=== PATIENT | male | born 1945 | race African-American/Black ===

== ENCOUNTER 2024-09-18 13:30 | Outpatient (CLI) | payer OTHER, SELFPAY ==
--- OUTSIDE RECORDS SUMMARY | 2024-09-14 15:51 | XMS_ITS | Encounter Summary ---
Author Name [facility] Organization [facility] Address [address] [place] [address] Care Team Providers Care Cellular Phone Repairer Name Role Phone JANISMARIOGANESH Dudley Primary Care Provider Unavailabl e Insurance Providers: All historical and current Section Date Range: From patient's date of to the date document was created. This section includes the names of all active insurance providers for the patient. Insurance Provider Type of Coverage Plan Name Start of Policy Coverage End of Policy Coverage Group Number Member ID Insurance Provider's Telephone Number Policy Morrison's Name Patient's Relationship to Policy Morrison MEDICARE (WNR) MEDICARE (M) PART A Jun 20, 2010 PART A [phone] Adriana OSBORN PATIENT MEDICARE (WNR) MEDICARE (M) PART B Jun 20, 2010 PART B [id number] Adriana OSBORN PATIENT Selected Encounter This section includes the information on record at [place] for the Encounter. Date/Time Encounter Type Encounter Description Reason Pro vider Source Aug 14, 2024 11:18 AM Outpatient Encounter PRIMARY CARE/MEDICINE E Encounter Template Text not used by [place] Plan of Treatment: Future Appointments (+ 6 months) and Future Tests (+/- 45 days) The Plan of Treatment section includes future care activities for the patient from all [facility]. This section includes future appointments and future orders which are active, pending or scheduled. Future Appointments This section includes appointments that were scheduled to occur 6 months from the date of the Encounter, up to a maximum of 20 appointments. The data comes from all [place] treatment facilities. Appointment Date/Time Appointment Type Appointme nt Facility Name Sep 01, 2024 05:32 PM AMB[facility] - NONE [facility] Sep 08, 2024 10:00 AM [facility]ICINE [facility] Sep 08, 2024 10:15 AM [facility]ONE [facility] Jan 05, 2025 10:45 AM [facility]ORY [facility] NONE [facility] January 30, 2025 01:00 PM [facility]ATORY - [facility] Lab Results: +/- 30 days of the encounter This section includes the Chemistry and Hematology Lab Results on record with [place] for the patient. Radiology Reports and Pathology Reports are provided separately, in subsequent sections. Lab Results This section contains the Chemistry/Hematology Results that were resulted 30 days before or 30 daysafter the date of the Encounter. Date/Time Source Result Type Result - Unit Interpretation Reference Range Comment Aug 08, 2024 02:18 PM [facility] B 12 Specimen Type: SERUM No comment entered. Ordering Provider: GANESH RICARDO Report Released Date/Time: Aug 01, 2024 09:28 AM Reporting Lab: [facility] [phone] Performing Lab: [facility] [id number] B 12 318 pg/mL [phone] Aug 08, 2024 02:18 PM [facility] FOLATE Specimen Type: SERUM No comment entered. Ordering Provider: GANESH RICARDO Report Released Date/Time: Aug 01, 2024 09:28 AM Reporting Lab: [facility] [phone] Performing Lab: [facility] [phone] FOLATE 9.7 ng/mL >7.0 Aug 08, 2024 02:18 PM [facility] IRON GROUP Specimen Type: PLASMA No comment entered. Ordering Provider: GANESH RICARDO Report Released Date/Time: Aug 01, 2024 09:28 AM Reporting Lab: [facility] [phone] Performing Lab: [facility] [phone] IRON 47 ug/dL L 65-175 TIBC,CALCULATED 250 ug/dL 250-425 FERRITIN 98.5 ng/mL 21.8-274.7 IRON SATURATION 19 L 20-50 TRANSFERRIN 200 mg/dL [phone] Jul 26, 2024 03:26 PM [facility] CBC & DIFF Specimen Type: BLOOD Comment: Automated Differential Performed Ordering Provider: GANESH RICARDO Report Released Date/Time: Jul 26, 2024 02:56 PM Reporting Lab: [facility] [phone] Performing Lab: [facility] [phone] WBC 6.9 4.0-11.0 RBC 4.44 L 4.60-6.20 HGB 11.7 g/dL L 13.5-17.9 HCT 38.7 L 41.0-54.0 MCV 87.2 fL 80.0-100.0 MCH 26.4 pg L 27.0-33.0 MCHC 30.2 g/dL L 32.0-37.5 PLT 126 L 150-400 MPV 12.0 fL 9.1-13.0 NEUT 85.0 H 40.0-80.0 LYMPHS 7.2 L 15.0-45.0 MONO 7.1 2.0-12.0 EOSINO 0.0 0.0-6.0 BASO 0.1 0.0-2.0 RDW 13.7 11.5-14.5 ABS LYMPH 0.5 L 1.0-4.0 ABS MONO 0.5 0.1-1.0 ABS NEUT 5.9 2.0-7.7 ABS EOS 0.0 0.0-0.5 ABS BASO 0.0 0.0-0.2 IG(META,MYELO,P RO) 0.6 ABS IMMATURE GRAN 0.0 0.0-0.1 Jul 26, 2024 03:26 PM [facility] COMPREHENSIVE METABOLIC PANEL+MG Specimen Type: PLASMA No comment entered. Ordering Provider: GANESH RICARDO Report Released Date/Time: Jul 26, 2024 02:56 PM Reporting Lab: [facility] [phone] Performing Lab: [facility] [phone] CREATININE 1.0 mg/dL 0.7-1.2 UREA NITROGEN 23 mg/dL 8-26 GLUCOSE 101 mg/dL H 70-100 SODIUM 140 mmol/L 136-145 POTASSIUM 4.0 mmol/L 3.5-5.1 CHLORIDE 104 mmol/L 98-107 CO2 26 mmol/L 22-29 CALCIUM 10.2 mg/dL 8.4-10.2 PROTEIN,TOTAL 7.1 g/dL 6.4-8.3 ALBUMIN 4.0 g/dL 3.5-5.0 BILIRUBIN, TOTAL 0.2 mg/dL 0.2-1.2 MAGNESIUM 2.1 mg/dL 1.6-2.6 ANION GAP 10 mmol/L 5-15 ALKALINE PHOSPHATASE 119 U/L 40-150 ALT/SGPT 10 U/L <44 AST/SGOT 24 U/L 11-34 .CREAT EGFR(CKD-EPI) 77 >60 Jul 26, 2024 03:26 PM [facility] HEMOGLOBIN A1C Specimen Type: BLOOD Comment: Values obtained from A1C measurements can vary. For typical A1C assays, a reported value of 7.0 could actually be between 6.7 and 7.3 if measured by a reference method. A reported value of 9.0 could actually be between 8.7 and 9.3. Ref: http://www.ngs p.org/CAPdata. asp Ordering Provider: GANESH RICARDO Report Released Date/Time: Jul 26, 2024 02:56 PM Reporting Lab: [facility] [phone] Performing Lab: [facility] [phone] HEMOGLOBIN A1C 6.4 H 4.0-6.0 Jul 26, 2024 03:26 PM [facility] LIPID PANEL,NON-FASTING Specimen Type: PLASMA No comment entered. Ordering Provider: GANESH RICARDO Report Released Date/Time: Jul 26, 2024 02:56 PM Reporting Lab: [facility] [phone] Performing Lab: [facility] [phone] CHOLESTEROL 215 mg/dL H <199 .HDL 83 mg/dL >40 LDL CALCULATION 117 mg/dL H <99 VLDL CALCULATION 15 mg/dL <29 NON HDL CHOLESTEROL 132 mg/dL H <129 TRIG(NON FASTING) 76 mg/dL <149 Jul 26, 2024 03:26 PM [facility] ANTI-HEP C(EIA) Specimen Type: SERUM No comment entered. Ordering Provider: GANESH RICARDO Report Released Date/Time: Jul 26, 2024 02:56 PM Reporting Lab: [facility] [phone] Performing Lab: [facility] [phone] ANTI-HEP C(EIA) NEGATIVE NEGATIVE Encounter Notes: All associated encounter notes This section contains the clinical notes associated to the Encounter. Date/Time Encounter Note(s) Provider Source Aug 14, 2024 11:18 AM REPORT OF CONTACT: LOCAL TITLE: PATIENT CONTACT NOTE STANDARD TITLE: REPORT OF CONTACT DATE OF NOTE: AUG 14, 2024@11:18 ENTRY DATE: AUG 14, 2024@11:19:03 AUTHOR: TONYA HESS EXP COSIGNER: URGENCY: STATUS: COMPLETED PATIENT CONTACT NOTE Has ADDENDA Patient contact Name of : TROY OSBORN Date & Time of Contact: Jul@11:19 Type of Contact: Reason for Contact: [place] was informed by [facility] Urgent/emergent hotline to notify provider of his urgent care visit at [facility] this past Wednesday08-11-2024 for a bladder infection. placed on 14 day antibiotic. /naun/ [facility] Signed: 08/14/2024 11:23 Receipt Acknowledged By: 08/14/2024 11:43 /brian LARRY RN RN, [facility] 08/14/2024 ADDENDUM STATUS: COMPLETED RTC order placed for RN evaluation of sx after abx course /naun/ CASTILLO LARRY RN RN, [facility] Signed: 08/14/2024 11:45 TONYA HESS [facility]
--- OUTSIDE RECORDS SUMMARY | 2024-09-14 15:51 | XMS_ITS | Continuity of Care Document ---
Author Name [facility] Organization [facility] Care Team Providers Care Wood Type Cutter Name Role Phone [facility] Unavailable Unavailable Problems Combined list of problems from Department of Defense and Veterans Affairs facilities. It does not include entries that were removed or entered in error. Problem Status Onset Date Problem Type Date of Resolution Comments Source Acute renal failure Active Condition Jul 26, 2024 Entered By: GANESH RICARDO Comment: [facility] Anaemia Active Condition [facility] Chronic kidney disease Active Condition [facility] Diabetes mellitus type 2 Active Condition [facility] Essential hypertension Active Condition [facility] History of malignant neoplasm of prostate Active Condition [facility] History of myocardial infarction Active Condition Jul 26, 2024 Entered By: GANESH RICARDO Comment: 2000 [facility] History of peripheral arterial occlusive disease Active Condition [facility] Hydronephrosis Active Condition [facility] Leucocytosis Active Condition [facility] Male urinary stress incontinence Active Condition [facility] Mixed hyperlipidaemia Active Condition [facility] Peripheral vascular disease Active Condition [facility] visit for: administrative purpose Active Condition [facility] Laboratory Studies Active Condition 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 Inactive Condition [facility] visit for: issue repeat prescription Active Condition DoD visit for: issue repeat prescription for medication Active Condition DoD hypertension systemic Active Condition DoD Serum Enzyme Levels - AST (SGOT) Elevated Active Condition DoD cataract senile cortical posterior Active Condition DoD cataract senile cortical anterior Active Condition 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 nml TI nml colon. grade I internal hemorroids. recs; repeat csp in 5 yrs due to hx of polyps in past and prep quality DoD Administrative Evaluation Services Active Condition called p t and let him know labs in. asked him to come fasting. thanks DoD diabetes mellitus type 2 - uncomplicated, controlled Active Condition DoD cataract both eyes Active Condition M ild NS and cortical OU DoD astigmatism regular Active Condition Do D presbyopia Active Condition DoD refractive error - hypermetropia Active Condition DoD Preventive Medicine Established Patient Checkup Adult 40-64 Years Active Condition Fasting Blood Sugar -- DM, A1c 7.0 07/27, Lipid Panel -- UTD 11/25Electrocar diogram -- UTD Colonoscopy -- Scheduled for 12/30/07Influen za Vaccine --UTD 07/27Pneuomova x -- 2002Tetanus Vaccine -- UTD 07/27Aspirin Prophylaxis -- currently on 325 dailyPSA/Prost ate Exam -- UTD 07/27 (2.65)AAA Screen --Due at age 65Advanced Directives: pt educated to go to [facility] office and fill out paperwork DoD hyperlipidemia Active Condition DoD large intestine neoplasm, 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 Will re-consult at this time. DoD diabetes mellitus under control Active Condition At goal A1c 7.0 in 07/27, will order repeat A1c for todayLipids LDL 50, goal <70BPs well controlledOpth o: UTD 08/26, Due 08/27Podiatry: UTD 07/27, Due 07/28Continue current regimenF/U A1c in 3-6 months DoD Diagnosis: ICD-10-CM I10 Essential (primary) hypertension Active Diagnosis [facility] Diagnosis: ICD-10-CM Z00.00 Encntr for general adult medical exam w/o abnormal findings Active Diagnosis [facility] Medications Combined list of outpatient medications from Department of Defense and Veterans Affairs facilities.Medications provided include 1) outpatient medications from the last 15 months, and 2) patient-reported medications. Medication Details Route Status Patient Instructions Prescription Expires Prescription Number Last Dispense Date Ordering Provider Order Date Order Qty Source ASPIRIN 81MG TAB,EC TAKE ONE TABLET BY MOUTH EVERY DAY ORAL ACTIVE Franklin RICARDO SAMY Womack 2023 [facility] BUPRENORPHI NE (buprenorph ine), 5 MCG/HR, PATCH TDWK, TRANSDERM, AMNEAL PHARMACE, 4 ea. BOX Cancele d [id number] : 2023 0 Pharmac y Data Transac tion Service Facilit y BUPRENORPHI NE (buprenorph ine), 5 MCG/HR, PATCH TDWK, TRANSDERM, AMNEAL PHARMACE, 4 ea. BOX Active [id number] 2023 4 Pharmac y Data Transac tion Service Facilit y BUPRENORPHI NE 10MCG/HR PATCH APPLY 1 PATCH TOPICALL Y ONCE WEEKLY TOPICA L ACTIVE HALEIGHFranklin SAMY Womack 2023 [facility] CARVEDILOL ER (carvedilol phosphate), 20 MG, CPMP 24HR, ORAL, SUN PHARMACEUTI , 30 ea. BOTTLE Active [id number] 2023 30 Pharmac y Data Transac tion Service Facilit y CARVEDILOL ER (carvedilol phosphate), 20 MG, CPMP 24HR, ORAL, SUN PHARMACEUTI , 30 ea. BOTTLE Active [id number] 4 2023 30 Pharmac y Data Transac tion Service Facilit y CARVEDILOL ER (carvedilol phosphate), 20 MG, CPMP 24HR, ORAL, SUN PHARMACEUTI , 30 ea. BOTTLE Active [id number] 2023 30 Pharmac y Data Transac tion Service Facilit y CARVEDILOL ER (carvedilol phosphate), 40 MG, CPMP 24HR, ORAL, SUN PHARMACEUTI , 30 ea. BOTTLE Active [id number] 4 2023 90 Pharmac y Data Transac tion Service Facilit y CARVEDILOL PO4 20MG CAP,SA TAKE 1 CAPSULE BY MOUTH EVERY MORNING ORAL ACTIVE JANISFranklin LARA 2023 [facility] CILOSTAZOL (cilostazol ), 50 MG, TABLET, ORAL, NUHA MONTESINOS HI, 60 ea. BOTTLE Cancele d [id number] : 2023 0 Pharmac y Data Transac tion Service Facilit y CILOSTAZOL (cilostazol ), 50 MG, TABLET, ORAL, NUHA MONTESINOS HI, 60 ea. BOTTLE Active [id number] 2023 180 Pharmac y Data Transac tion Service Facilit y CORTEF (HYDROCORTI SONE), 5MG, TABLET, ORAL, PHARMACIA/U PJHN, 50 ea. BOTTLE Active [id number] 2023 270 Pharmac y Data Transac tion Service Facilit y CYCLOBENZAP RINE TAB TAKE 5 MG 1-2 TABLETS BY MOUTH AT BEDTIME NEEDED ORAL ACTIVE Franklin RICARDO 2023 [facility] ERGOCALCIFE ROL CAP,ORAL TAKE 01395 UT BY MOUTH ONCE WEEKLY ORAL ACTIVE Franklin RICARDO 2023 [facility] FREESTYLE LITE TEST STRIP (blood sugar diagnostic) , STRIP, MISCELL, DUNCAN DIABETES, 50 ea. BOX Active [id number] 2023 400 Pharmac y Data Transac tion Service Facilit y GAVILYTE-G (PEG 3350/NA SULF,BICARB ,CL/KCL), 236-22.74G, SOLN RECON, ORAL, GAVIS PHARMACEU, 4000 ml BOTTLE Active [id number] 2023 4000 Pharmac y Data Transac tion Service Facilit y GLUCOSE TEST TEST STRIP USE NOT APPLIC ABLE ACTIVE Franklin RICARDO 2023 [facility] HYDROCODONE -ACETAMINOP HEN (HYDROCODON E/ACETAMINO PHEN), 5MG-325MG, TABLET, ORAL, AMNEAL PHARMACE, 100 ea. BOTTLE Active [id number] 2023 42 Pharmac y Data Transac tion Service Facilit y HYDROCODONE -ACETAMINOP HEN (HYDROCODON E/ACETAMINO PHEN), 5MG-325MG, TABLET, ORAL, AMNEAL PHARMACE, 100 ea. BOTTLE Active [id number] 2023 42 Pharmac y Data Transac tion Service Facilit y INSULIN ASPART (HUMAN) INJ INJECT FLEX PEN 14 UNITS 3 X DAY UNDER THE SKIN BEFORE MEALS SUBCUT ANEOUS ACTIVE Franklin RICARDO 2023 [facility] INSULIN GLARGINE 100UNIT/ML INJ INJECT SOLOSTAR PEN 20 UNITS UNDER THE SKIN EVERY MORNING SUBCUT ANEOUS ACTIVE Franklin RICARDO 2023 [facility] LIDOCAINE 5% PATCH APPLY 1 PATCH TOPICALL Y EVERY 12 HOURS TOPICA L ACTIVE Franklin RICARDO 2023 [facility] LISINOPRIL (LISINOPRIL ), 2.5MG, TABLET, ORAL, LUPIN PHARMACEU, 500 ea. BOTTLE Active [id number] 4 2023 90 Pharmac y Data Transac tion Service Facilit y LISINOPRIL 2.5MG TAB TAKE ONE TABLET BY MOUTH EVERY DAY ORAL ACTIVE Franklin RICARDO 2023 [facility] MORPHINE SOLN,ORAL TAKE 2.5-5 MG BY MOUTH EVERY 4 HOURS NEEDED ORAL ACTIVE Franklin RICARDO 2023 [facility] NON VA MED NOT LISTED MISCELLANEO US USE RELI PEN NEEDLES3 1 G X 8 MM ACTIVE Franklin RICARDO 2023 [facility] OXYCODONE HCL (oxycodone HCl), 5 MG, CAPSULE, ORAL, [employer] 100 ea. BOTTLE Active [id number] 4 2023 12 Pharmac y Data Transac tion Service Facilit y PREDNISONE (PREDNISONE ), 1MG, TABLET, ORAL, CADISTA PHARMAC, 100 ea. BOTTLE Active [id number] 3 2022 90 Pharmac y Data Transac tion Service Facilit y PROCHLORPER AZINE MALEATE (prochlorpe razine maleate), 10 MG, TABLET, ORAL, ZYDUS PHARMACEU, 100 ea. BOTTLE Active [id number] 2023 30 Pharmac y Data Transac tion Service Facilit y PROCHLORPER AZINE MALEATE 10MG TAB TAKE ONE TABLET BY MOUTH EVERY 4 HOURS NEEDED ORAL ACTIVE Franklin RICARDO 2023 [facility] SITAGLIPTIN (EQV-ZITUVI O) 100MG TAB TAKE ONE TABLET BY MOUTH EVERY MORNING ORAL ACTIVE Franklin RICARDO 2023 [facility] TALZENNA (talazopari b tosylate), 0.25 MG, CAPSULE, ORAL, PFIZER US PHARM, 30 ea. BOTTLE Cancele d [id number] : 2023 0 Pharmac y Data Transac tion Service Facilit y TALZENNA (talazopari b tosylate), 0.25 MG, CAPSULE, ORAL, PFIZER US PHARM, 30 ea. BOTTLE Active [id number] 2023 30 Pharmac y Data Transac tion Service Facilit y XTANDI (ENZALUTAMI DE), 40 MG, CAPSULE, ORAL, Neteven PHARMA, 120 ea. BOTTLE Active [id number] 4 2023 90 Pharmac y Data Transac tion Service Facilit y Allergies, Adverse Reactions, Alerts Combined list of allergies from Department of Defense and Veterans Affairs facilities. It does not include entries that were removed or entered in error. Substance Category Reaction Severity Reaction type Status Date Reported Comments Source No Known Allergies Drug allergy (disorder) active 03/28/2008 [employer] Immunizations Combined list of available immunizations from the Department of Defense and Veterans Affairs facilities. Immunization Series Date Given Administered By Site Reaction Lot Number CVX Code Drug Concrete Hopper Operator Status Comments Source INFLUENZA, HIGH-DOSE, QUADRIVALENT, PF 2022 197 complet ed [facility] COVID-19 (MODERNA), MRNA, LNP-S, BIVALENT, PF, 50 MCG/0.5 ML OR 25MCG/0.25 ML DOSE 2021 229 complet ed [facility] COVID-19 (MODERNA), MRNA, LNP-S, PF, 100 MCG/0.5ML DOSE OR 50 MCG/0.25ML DOSE 2020 207 complet ed [facility] INFLUENZA, HIGH-DOSE, QUADRIVALENT, PF [address] [facility] COVID-19 (PRINCESS), VECTOR-NR, RS-AD26, PF, 0.5 ML [address] [facility] INFLUENZA, HIGH-DOSE, QUADRIVALENT, PF [address] [facility] INFLUENZA, HIGH-DOSE, TRIVALENT, PF [address] [facility] INFLUENZA, HIGH-DOSE, TRIVALENT, PF [address] [facility] INFLUENZA, HIGH-DOSE, TRIVALENT, PF [address] [facility] pneumococcal polysaccharid e PPV23 2015 [facility], () Not Given pneumococ enoc polysacch aride PPV23 DoD Pneumococcal conjugate PCV 13 2015 [facility], () Not Given Pneumococ enoc conjugate PCV 13 DoD zoster live 2015 [facility], () Not Given zoster live DoD PNEUMOCOCCAL CONJUGATE PCV [address] [facility] INFLUENZA, HIGH-DOSE, TRIVALENT, PF [address] [facility] INFLUENZA, HIGH-DOSE, TRIVALENT, PF [address] [facility] INFLUENZA, HIGH-DOSE, TRIVALENT, PF [address] [facility] TDAP [address] [facility] PNEUMOCOCCAL POLYSACCHARID E PPV23 [address] [facility] INFLUENZA, HIGH-DOSE, TRIVALENT, PF [address] [facility] influenza virus vaccine, whole virus 1 2008 Unknown, Provider 16 () complet ed influenza virus vaccine, whole virus DoD influenza virus vaccine, split virus (incl. purified surface antigen)-reti red CODE 1 2006 Unknown, Provider [id number] [facility] influenza virus vaccine, split virus (incl. purified surface antigen)- retired CODE DoD tetanus toxoid, reduced diphtheria toxoid, and acellular pertu is vaccine, adsorbed 2006 Unknown, Provider [id number] Sanofi Pasteur (PMC) complet ed tetanus toxoid, reduced diphtheri a toxoid, and acellular pertussis vaccine, adsorbed DoD zoster vaccine, live 1 2006 Unknown, Provider [id number] Merck (MSD) complet ed zoster vaccine, live DoD influenza virus vaccine, split virus (incl. purified surface antigen)-reti red CODE 1 2003 Unknown, Provider [id number] 15 Sanofi Pasteur (PMC) complet ed influenza virus vaccine, split virus (incl. purified surface antigen)- retired CODE DoD influenza virus vaccine, whole virus 1 2002 Unknown, Provider [id number] 16 [employer] (PWJ) complet ed influenza virus vaccine, whole virus DoD pneumococcal polysaccharid e vaccine, 23 valent 1 2002 Unknown, Provider [id number] 33 Merck (MSD) complet ed pneumococ enoc polysacch aride vaccine, 23 valent DoD pneumococcal polysaccharid e vaccine, 23 valent 1 2001 Unknown, Provider [id number] Merck (MSD) complet ed pneumococ enoc polysacch aride vaccine, 23 valent DoD Results Combined list of recent chemistry, hematology and other laboratory results from Department of Defense and Veterans Affairs, ranging from 15 months to all on record, depending upon the facility. Order Name Results Value Reference Range Date Interpretation Specimen Comments Source B 12 COBALAMIN (VITAMIN B12) [MASS/VOLU ME] IN SERUM OR PLASMA 318 pg/mL 213 - 816 08/08 Specimen Type: SERUM No comment entered. Ordering Provider: MERY RICARDO Report Released Date/Time: Aug 01, 2024 09:28 AM Reporting Lab: [facility] [phone] Performing Lab: [facility] [address] [facility] FOLATE FOLATE [MASS/VOLU ME] IN SERUM OR PLASMA 9.7 ng/mL 7.0 08/08 Specimen Type: SERUM No comment entered. Ordering Provider: MERY RICARDO Report Released Date/Time: Aug 01, 2024 09:28 AM Reporting Lab: [facility] [phone] Performing Lab: [facility] [address] [facility] IRON GROUP IRON [MASS/VOLU ME] IN SERUM OR PLASMA 47 ug/dL 65 - 175 08/08 L Specimen Type: PLASMA No comment entered. Ordering Provider: MEYR RICARDO Report Released Date/Time: Aug 01, 2024 09:28 AM Reporting Lab: [facility] [address] Performing Lab: [facility] [address] [facility] IRON GROUP IRON BINDING CAPACITY [MASS/VOLU ME] IN SERUM OR PLASMA 250 ug/dL 250 - 425 08/08 Specimen Type: PLASMA No comment entered. Ordering Provider: MERY RICARDO Report Released Date/Time: Aug 01, 2024 09:28 AM Reporting Lab: [facility] [address] Performing Lab: [facility] [address] [facility] IRON GROUP FERRITIN [MASS/VOLU ME] IN SERUM OR PLASMA 98.5 ng/mL 21.8 - 274.7 08/08 Specimen Type: PLASMA No comment entered. Ordering Provider: MERY RICARDO Report Released Date/Time: Aug 01, 2024 09:28 AM Reporting Lab: [facility] [address] Performing Lab: [facility] [address] [facility] IRON GROUP IRON SATURATION 19 20 - 50 08/08 L Specimen Type: PLASMA No comment entered. Ordering Provider: MERY RICARDO Report Released Date/Time: Aug 01, 2024 09:28 AM Reporting Lab: [facility] [address] Performing Lab: [facility] [address] [facility] IRON GROUP TRANSFERRI N [MASS/VOLU ME] IN SERUM OR PLASMA 200 mg/dL 163 - 382 08/08 Specimen Type: PLASMA No comment entered. Ordering Provider: MERY RICARDO Report Released Date/Time: Aug 01, 2024 09:28 AM Reporting Lab: [facility] [phone] Performing Lab: [facility] [address] [facility] CBC & DIFF LEUKOCYTES [#/VOLUME] IN BLOOD BY AUTOMATED COUNT 6.9 4.0 - 11.0 07/26 Specimen Type: BLOOD Comment: Automated Differentia l Performed Ordering Provider: MERY RICARDO Report Released Date/Time: Jul 26, 2024 02:56 PM Reporting Lab: [facility] [address] Performing Lab: [facility] [address] [facility] CBC & DIFF ERYTHROCYT ES [#/VOLUME] IN BLOOD BY AUTOMATED COUNT 4.44 4.60 - 6.20 07/26 L Specimen Type: BLOOD Comment: Automated Differentia l Performed Ordering Provider: MERY RICARDO Report Released Date/Time: Jul 26, 2024 02:56 PM Reporting Lab: [facility] [address] Performing Lab: [facility] [address] [facility] CBC & DIFF HEMOGLOBIN [MASS/VOLU ME] IN BLOOD 11.7 g/dL 13.5 - 17.9 07/26 L Specimen Type: BLOOD Comment: Automated Differentia l Performed Ordering Provider: MERY RICARDO Report Released Date/Time: Jul 26, 2024 02:56 PM Reporting Lab: [facility] [phone] Performing Lab: [facility] [phone] [facility] CBC & DIFF HEMATOCRIT [VOLUME FRACTION] OF BLOOD BY AUTOMATED COUNT 38.7 41.0 - 54.0 07/26 L Specimen Type: BLOOD Comment: Automated Differentia l Performed Ordering Provider: MERY RICARDO Report Released Date/Time: Jul 26, 2024 02:56 PM Reporting Lab: [facility] [phone] Performing Lab: [facility] [address] [facility] CBC & DIFF MCV [ENTITIC VOLUME] BY AUTOMATED COUNT 87.2 fL 80.0 - 100.0 07/26 Specimen Type: BLOOD Comment: Automated Differentia l Performed Ordering Provider: MERY RICARDO Report Released Date/Time: Jul 26, 2024 02:56 PM Reporting Lab: [facility] [phone] Performing Lab: [facility] [address] [facility] CBC & DIFF MCH [ENTITIC MASS] BY AUTOMATED COUNT 26.4 pg 27.0 - 33.0 07/26 L Specimen Type: BLOOD Comment: Automated Differentia l Performed Ordering Provider: MERY RICARDO Report Released Date/Time: Jul 26, 2024 02:56 PM Reporting Lab: [facility] [address] Performing Lab: [facility] [phone] [facility] CBC & DIFF MCHC [MASS/VOLU ME] BY AUTOMATED COUNT 30.2 g/dL 32.0 - 37.5 07/26 L Specimen Type: BLOOD Comment: Automated Differentia l Performed Ordering Provider: MERY RICARDO Report Released Date/Time: Jul 26, 2024 02:56 PM Reporting Lab: [facility] [phone] Performing Lab: [facility] [phone] [facility] CBC & DIFF PLATELETS [#/VOLUME] IN BLOOD BY AUTOMATED COUNT 126 150 - 400 07/26 L Specimen Type: BLOOD Comment: Automated Differentia l Performed Ordering Provider: MERY RICARDO Report Released Date/Time: Jul 26, 2024 02:56 PM Reporting Lab: [facility] [phone] Performing Lab: [facility] [phone] [facility] CBC & DIFF PLATELET MEAN VOLUME [ENTITIC VOLUME] IN BLOOD BY AUTOMATED COUNT 12.0 fL 9.1 - 13.0 07/26 Specimen Type: BLOOD Comment: Automated Differentia l Performed Ordering Provider: MERY RICARDO Report Released Date/Time: Jul 26, 2024 02:56 PM Reporting Lab: [facility] [phone] Performing Lab: [facility] [phone] [facility] CBC & DIFF NEUTROPHIL S/100 LEUKOCYTES IN BLOOD BY MANUAL COUNT 85.0 40.0 - 80.0 07/26 H Specimen Type: BLOOD Comment: Automated Differentia l Performed Ordering Provider: MEYR RICARDO Report Released Date/Time: Jul 26, 2024 02:56 PM Reporting Lab: [facility] [phone] Performing Lab: [facility] [address] [facility] CBC & DIFF LYMPHOCYTE S/100 LEUKOCYTES IN BLOOD BY MANUAL COUNT 7.2 15.0 - 45.0 07/26 L Specimen Type: BLOOD Comment: Automated Differentia l Performed Ordering Provider: MERY RICARDO Report Released Date/Time: Jul 26, 2024 02:56 PM Reporting Lab: [facility] [phone] Performing Lab: [facility] [address] [facility] CBC & DIFF MONOCYTES/ 100 LEUKOCYTES IN BLOOD BY AUTOMATED COUNT 7.1 2.0 - 12.0 07/26 Specimen Type: BLOOD Comment: Automated Differentia l Performed Ordering Provider: MERY RICARDO Report Released Date/Time: Jul 26, 2024 02:56 PM Reporting Lab: [facility] [phone] Performing Lab: [facility] [address] [facility] CBC & DIFF EOSINOPHIL S/100 LEUKOCYTES IN BLOOD BY AUTOMATED COUNT 0.0 0.0 - 6.0 07/26 Specimen Type: BLOOD Comment: Automated Differentia l Performed Ordering Provider: MERY RICARDO Report Released Date/Time: Jul 26, 2024 02:56 PM Reporting Lab: [facility] [phone] Performing Lab: [facility] [address] [facility] CBC & DIFF BASOPHILS/ 100 LEUKOCYTES IN BLOOD BY MANUAL COUNT 0.1 0.0 - 2.0 07/26 Specimen Type: BLOOD Comment: Automated Differentia l Performed Ordering Provider: MERY RICARDO Report Released Date/Time: Jul 26, 2024 02:56 PM Reporting Lab: [facility] [phone] Performing Lab: [facility] [address] [facility] CBC & DIFF ERYTHROCYT E DISTRIBUTI ON WIDTH [RATIO] BY AUTOMATED COUNT 13.7 11.5 - 14.5 07/26 Specimen Type: BLOOD Comment: Automated Differentia l Performed Ordering Provider: MERY RICARDO Report Released Date/Time: Jul 26, 2024 02:56 PM Reporting Lab: [facility] [phone] Performing Lab: [facility] [address] [facility] CBC & DIFF LYMPHOCYTE S [#/VOLUME] IN BLOOD BY AUTOMATED COUNT 0.5 1.0 - 4.0 07/26 L Specimen Type: BLOOD Comment: Automated Differentia l Performed Ordering Provider: MERY RICARDO Report Released Date/Time: Jul 26, 2024 02:56 PM Reporting Lab: [facility] [address] Performing Lab: [facility] [phone] [facility] CBC & DIFF MONOCYTES [#/VOLUME] IN BLOOD BY AUTOMATED COUNT 0.5 0.1 - 1.0 07/26 Specimen Type: BLOOD Comment: Automated Differentia l Performed Ordering Provider: MERY RICARDO Report Released Date/Time: Jul 26, 2024 02:56 PM Reporting Lab: [facility] [address] Performing Lab: [facility] [address] [facility] CBC & DIFF NEUTROPHIL S [#/VOLUME] IN BLOOD BY AUTOMATED COUNT 5.9 2.0 - 7.7 07/26 Specimen Type: BLOOD Comment: Automated Differentia l Performed Ordering Provider: MERY RICARDO Report Released Date/Time: Jul 26, 2024 02:56 PM Reporting Lab: [facility] [phone] Performing Lab: [facility] [address] [facility] CBC & DIFF EOSINOPHIL S [#/VOLUME] IN BLOOD BY AUTOMATED COUNT 0.0 0.0 - 0.5 07/26 Specimen Type: BLOOD Comment: Automated Differentia l Performed Ordering Provider: MERY RICARDO Report Released Date/Time: Jul 26, 2024 02:56 PM Reporting Lab: [facility] [phone] Performing Lab: [facility] [phone] [facility] CBC & DIFF BASOPHILS [#/VOLUME] IN BLOOD BY AUTOMATED COUNT 0.0 0.0 - 0.2 07/26 Specimen Type: BLOOD Comment: Automated Differentia l Performed Ordering Provider: MERY RICARDO Report Released Date/Time: Jul 26, 2024 02:56 PM Reporting Lab: [facility] [phone] Performing Lab: [facility] [phone] [facility] CBC & DIFF IG(META,MY GEETA,PRO) 0.6 07/26 Specimen Type: BLOOD Comment: Automated Differentia l Performed Ordering Provider: MERY RICARDO Report Released Date/Time: Jul 26, 2024 02:56 PM Reporting Lab: [facility] [address] Performing Lab: [facility] [address] [facility] CBC & DIFF IMMATURE GRANULOCYT ES [PRESENCE] IN BLOOD BY AUTOMATED COUNT 0.0 0.0 - 0.1 07/26 Specimen Type: BLOOD Comment: Automated Differentia l Performed Ordering Provider: MERY RICARDO Report Released Date/Time: Jul 26, 2024 02:56 PM Reporting Lab: [facility] [phone] Performing Lab: [facility] [address] [facility] COMPREHEN SIVE METABOLIC PANEL+MG CREATININE [MASS/VOLU ME] IN SERUM OR PLASMA 1.0 mg/dL 0.7 - 1.2 07/26 Specimen Type: PLASMA No comment entered. Ordering Provider: MERY RICARDO Report Released Date/Time: Jul 26, 2024 02:56 PM Reporting Lab: [facility] [phone] Performing Lab: [facility] [address] [facility] COMPREHEN SIVE METABOLIC PANEL+MG UREA NITROGEN [MASS/VOLU ME] IN SERUM OR PLASMA 23 mg/dL 8 - 26 07/26 Specimen Type: PLASMA No comment entered. Ordering Provider: MERY RICARDO Report Released Date/Time: Jul 26, 2024 02:56 PM Reporting Lab: [facility] [phone] Performing Lab: [facility] [address] [facility] COMPREHEN SIVE METABOLIC PANEL+MG GLUCOSE [MASS/VOLU ME] IN SERUM OR PLASMA 101 mg/dL 70 - 100 07/26 H Specimen Type: PLASMA No comment entered. Ordering Provider: MERY RICARDO Report Released Date/Time: Jul 26, 2024 02:56 PM Reporting Lab: [facility] [phone] Performing Lab: [facility] [address] [facility] COMPREHEN SIVE METABOLIC PANEL+MG SODIUM [MOLES/VOL UME] IN SERUM OR PLASMA 140 mmol/L 136 - 145 07/26 Specimen Type: PLASMA No comment entered. Ordering Provider: MERY RICARDO Report Released Date/Time: Jul 26, 2024 02:56 PM Reporting Lab: [facility] [address] Performing Lab: [facility] [address] [facility] COMPREHEN SIVE METABOLIC PANEL+MG POTASSIUM [MOLES/VOL UME] IN SERUM OR PLASMA 4.0 mmol/L 3.5 - 5.1 07/26 Specimen Type: PLASMA No comment entered. Ordering Provider: MERY RICARDO Report Released Date/Time: Jul 26, 2024 02:56 PM Reporting Lab: [facility] [phone] Performing Lab: [facility] [address] [facility] COMPREHEN SIVE METABOLIC PANEL+MG CHLORIDE [MOLES/VOL UME] IN SERUM OR PLASMA 104 mmol/L 98 - 107 07/26 Specimen Type: PLASMA No comment entered. Ordering Provider: MERY RICARDO Report Released Date/Time: Jul 26, 2024 02:56 PM Reporting Lab: [facility] [address] Performing Lab: [facility] [address] [facility] COMPREHEN SIVE METABOLIC PANEL+MG CARBON DIOXIDE, TOTAL [MOLES/VOL UME] IN SERUM OR PLASMA 26 mmol/L 22 - 29 07/26 Specimen Type: PLASMA No comment entered. Ordering Provider: MERY RICARDO Report Released Date/Time: Jul 26, 2024 02:56 PM Reporting Lab: [facility] [address] Performing Lab: [facility] [address] [facility] COMPREHEN SIVE METABOLIC PANEL+MG CALCIUM [MASS/VOLU ME] IN SERUM OR PLASMA 10.2 mg/dL 8.4 - 10.2 07/26 Specimen Type: PLASMA No comment entered. Ordering Provider: MERY RICARDO Report Released Date/Time: Jul 26, 2024 02:56 PM Reporting Lab: [facility] [address] Performing Lab: [facility] [address] [facility] COMPREHEN SIVE METABOLIC PANEL+MG PROTEIN [MASS/VOLU ME] IN SERUM OR PLASMA 7.1 g/dL 6.4 - 8.3 07/26 Specimen Type: PLASMA No comment entered. Ordering Provider: MERY RICARDO Report Released Date/Time: Jul 26, 2024 02:56 PM Reporting Lab: [facility] [address] Performing Lab: [facility] [address] [facility] COMPREHEN SIVE METABOLIC PANEL+MG ALBUMIN [MASS/VOLU ME] IN SERUM OR PLASMA 4.0 g/dL 3.5 - 5.0 07/26 Specimen Type: PLASMA No comment entered. Ordering Provider: MERY RICARDO Report Released Date/Time: Jul 26, 2024 02:56 PM Reporting Lab: [facility] [address] Performing Lab: [facility] [address] [facility] COMPREHEN SIVE METABOLIC PANEL+MG BILIRUBIN. TOTAL [MASS/VOLU ME] IN SERUM OR PLASMA 0.2 mg/dL 0.2 - 1.2 07/26 Specimen Type: PLASMA No comment entered. Ordering Provider: MERY RICARDO Report Released Date/Time: Jul 26, 2024 02:56 PM Reporting Lab: [facility] [address] Performing Lab: [facility] [address] [facility] COMPREHEN SIVE METABOLIC PANEL+MG MAGNESIUM [MASS/VOLU ME] IN SERUM OR PLASMA 2.1 mg/dL 1.6 - 2.6 07/26 Specimen Type: PLASMA No comment entered. Ordering Provider: MERY RICARDO Report Released Date/Time: Jul 26, 2024 02:56 PM Reporting Lab: [facility] [address] Performing Lab: [facility] [address] [facility] COMPREHEN SIVE METABOLIC PANEL+MG ANION GAP IN SERUM OR PLASMA 10 mmol/L 5 - 15 07/26 Specimen Type: PLASMA No comment entered. Ordering Provider: MERY RICARDO Report Released Date/Time: Jul 26, 2024 02:56 PM Reporting Lab: [facility] [phone] Performing Lab: [facility] [phone] [facility] COMPREHEN SIVE METABOLIC PANEL+MG ALKALINE PHOSPHATAS E [ENZYMATIC ACTIVITY/V OLUME] IN SERUM OR PLASMA 119 U/L 40 - 150 07/26 Specimen Type: PLASMA No comment entered. Ordering Provider: MERY RICARDO Report Released Date/Time: Jul 26, 2024 02:56 PM Reporting Lab: [facility] [phone] Performing Lab: [facility] [address] [facility] COMPREHEN SIVE METABOLIC PANEL+MG ALANINE AMINOTRANS FERASE [ENZYMATIC ACTIVITY/V OLUME] IN SERUM OR PLASMA 10 U/L <44 - 44 07/26 Specimen Type: PLASMA No comment entered. Ordering Provider: MERY RICARDO Report Released Date/Time: Jul 26, 2024 02:56 PM Reporting Lab: [facility] [address] Performing Lab: [facility] [phone] [facility] COMPREHEN SIVE METABOLIC PANEL+MG ASPARTATE AMINOTRANS FERASE [ENZYMATIC ACTIVITY/V OLUME] IN SERUM OR PLASMA 24 U/L 11 - 34 07/26 Specimen Type: PLASMA No comment entered. Ordering Provider: MERY RICARDO Report Released Date/Time: Jul 26, 2024 02:56 PM Reporting Lab: [facility] [address] Performing Lab: [facility] [address] [facility] COMPREHEN SIVE METABOLIC PANEL+MG GLOMERULAR FILTRATION RATE/1.73 SQ M.PREDICTE D [VOLUME RATE/AREA] IN SERUM, PLASMA OR BLOOD BY CREATININE -BASED FORMULA (CKD-EPI 2020) 77 60 07/26 Specimen Type: PLASMA No comment entered. Ordering Provider: MERY RICARDO Report Released Date/Time: Jul 26, 2024 02:56 PM Reporting Lab: [facility] [address] Performing Lab: [facility] [address] [facility] HEMOGLOBI N A1C HEMOGLOBIN A1C/HEMOGL OBIN.TOTAL IN BLOOD 6.4 4.0 - 6.0 07/26 H Specimen Type: BLOOD Comment: Values obtained from A1C measurement s can vary. For typical A1C assays, a reported value of 7.0 could actually be between 6.7 and 7.3 if measured by a reference method. A reported value of 9.0 could actually be between 8.7 and 9.3. Ref: http://www. ngsp.org/[place] Pdata.asp Ordering Provider: MERY RICARDO Report Released Date/Time: Jul 26, 2024 02:56 PM Reporting Lab: [facility] [address] Performing Lab: [facility] [address] [facility] LIPID PANEL,NON -FASTING CHOLESTERO L [MASS/VOLU ME] IN SERUM OR PLASMA 215 mg/dL <199 - 199 07/26 H Specimen Type: PLASMA No comment entered. Ordering Provider: MERY RICARDO Report Released Date/Time: Jul 26, 2024 02:56 PM Reporting Lab: [facility] [phone] Performing Lab: [facility] [phone] [facility] LIPID PANEL,NON -FASTING CHOLESTERO L IN HDL [MASS/VOLU ME] IN SERUM OR PLASMA 83 mg/dL 40 07/26 Specimen Type: PLASMA No comment entered. Ordering Provider: MERY RICARDO Report Released Date/Time: Jul 26, 2024 02:56 PM Reporting Lab: [facility] [phone] Performing Lab: [facility] [address] [facility] LIPID PANEL,NON -FASTING CHOLESTERO L IN LDL [MASS/VOLU ME] IN SERUM OR PLASMA BY CALCULATIO N 117 mg/dL <99 - 99 07/26 H Specimen Type: PLASMA No comment entered. Ordering Provider: MERY RICARDO Report Released Date/Time: Jul 26, 2024 02:56 PM Reporting Lab: [facility] [phone] Performing Lab: [facility] [address] [facility] LIPID PANEL,NON -FASTING CHOLESTERO L IN VLDL [MASS/VOLU ME] IN SERUM OR PLASMA BY CALCULATIO N 15 mg/dL <29 - 29 07/26 Specimen Type: PLASMA No comment entered. Ordering Provider: MERY RICARDO Report Released Date/Time: Jul 26, 2024 02:56 PM Reporting Lab: [facility] [address] Performing Lab: [facility] [address] [facility] LIPID PANEL,NON -FASTING CHOLESTERO L NON HDL [MASS/VOLU ME] IN SERUM OR PLASMA 132 mg/dL <129 - 129 07/26 H Specimen Type: PLASMA No comment entered. Ordering Provider: MERY RICARDO Report Released Date/Time: Jul 26, 2024 02:56 PM Reporting Lab: [facility] [address] Performing Lab: [facility] [address] [facility] LIPID PANEL,NON -FASTING TRIGLYCERI DE [MASS/VOLU ME] IN SERUM OR PLASMA 76 mg/dL <149 - 149 07/26 Specimen Type: PLASMA No comment entered. Ordering Provider: MERY RICARDO Report Released Date/Time: Jul 26, 2024 02:56 PM Reporting Lab: [facility] [address] Performing Lab: [facility] [address] [facility] ANTI-HEP C(EIA) HEPATITIS C VIRUS AB [PRESENCE] IN SERUM NEGATIVE 07/26 Specimen Type: SERUM No comment entered. Ordering Provider: MERY RICARDO Report Released Date/Time: Jul 26, 2024 02:56 PM Reporting Lab: [facility] [address] Performing Lab: [facility] [address] [facility] Vital Signs Combined list of inpatient and outpatient Vital Signs from [facility], ranging from 12 months to all on record, depending upon the facility. Vital Sign Value Date Comments Source SYSTOLIC BLOOD PRESSURE 140 07/26/2024 14:27:11 [facility] DIASTOLIC BLOOD PRESSURE 78 07/26/2024 14:27:11 [facility] PULSE OXIMETRY 97 07/26/2024 14:27:11 L [facility]N [facility] WEIGHT 121.7 07/26/2024 14:27:11 [facility] PAIN 0 07/26/2024 14:27:11 [facility] TEMPERATURE 98.6 07/26/2024 14:27:11 [facility] PULSE 80 07/26/2024 14:27:11 [facility] RESPIRATION 20 07/26/2024 14:27:11 [facility] Encounters Combined list of: 1) Encounters from Department of Veterans Affairs facilities going back up to thelast 18 months. 2) Encounters from the Department of [facility] facilities going back up to 280 months. Location Location Details Encounter Type Encounter Number Reason For Visit Attending Provider ADM Date DC Date Status Disposition Source [employer]([facility] Family Practice Clinic) OUTPATIENT [id number] f/u DM2 DOMENIC MILADIS Suyapa 08/03 Released w/o Limitations [employer]([facility] Family Practic e Clinic) [employer]([facility] GME Team J) OUTPATIENT [id number] BACK PAIN DOMENICPRASAD RAOMILADIS H 01/18 Released w/o Limitations [employer]([facility] G[facility] J) [employer] [id number] F/U JORY DUFF 08/04 Released w/o Limitations [employer]([facility] GME Team J) [employer]([facility] Occupatio nal Therapy Clinic) OUTPATIENT [id number] diabete s AN PETE M 08/17 Released w/o Limitations [employer]([facility] Occupat ional Therapy Clinic) [employer]([facility] Ophthalmo logy Clinic) OUTPATIENT [id number] YADIEL Sibley 08/23 Released w/o Limitations [employer]([facility] Ophthal mology Clinic) [employer]([facility] GME Team J) OUTPATIENT [id number] f/u blood JORY Kelly 10/08 Released w/o Limitations [employer]([facility] GME Team J) [employer]([facility] GME Team J) OUTPATIENT [id number] f/u diabete s SARMAD STAFFORD F 07/25 Released w/o Limitations [employer]([facility] GME Team J) [employer]([facility] GME Team J) OUTPATIENT [id number] f/u SARMAD STAFFORD F 08/10 Released w/o Limitations [employer]([facility] GME Team J) [employer]([facility] Occupatio nal Therapy Clinic) OUTPATIENT [id number] DIABETE S MELLITU ANGEL LUIS HERNANDEZ 08/16 Released w/o Limitations [employer]([facility] Occupat ional Therapy Clinic) [employer]([facility] Optometry ) OUTPATIENT [id number] DIABETE S MARKITU CANDY CABEZAS 08/31 Released w/o Limitations [employer]([facility] Optomet ry) [employer]([facility] GME Team J) TELE CONSULT [id number] consult MARCOS Razo 11/16 [employer]([facility] GME Team J) [employer]([facility] GME Team J) TELE CONSULT [id number] lab MARCOS Razo 12/12 [employer]([facility] GME Team J) [employer]([facility] GME Team J) OUTPATIENT [id number] f/u diabete s SARMAD STAFFORD F 12/20 Released w/o Limitations [employer]([facility] GME Team J) [employer]([facility] Gastroent erology) OUTPATIENT [id number] Adminis trative Evaluat ion Service s MORENA SPEAR 12/29 Released w/o Limitations [employer]([facility] Gastroe nterolo gy) [employer]([facility] GME Team J) OUTPATIENT [id number] f/u B/P SARMAD STAFFORD F 01/11 Released w/o Limitations [employer]([facility] GME Team J) [employer]([facility] GME Team J) OUTPATIENT [id number] f/u BP & JORY Puentes 03/27 Released w/o Limitations [employer]([facility] GME Team J) [employer]([facility] GME Team J) OUTPATIENT [id number] new pt eval-6 month diabeti c f/u CHONG STEPHENS 08/15 Released w/o Limitations [employer]([facility] GME Team J) [employer]([facility] Optometry ) OUTPATIENT [id number] DIABETE S MELLITU S UNDER CONTROL CHONG CHAU 09/04 Released w/o Limitations [employer]([facility] Optomet ry) [employer]([facility] GME Team J) OUTPATIENT [id number] f/u diabete s TYLER FOSS 12/13 Released w/o Limitations [employer]([facility] GME Team J) [employer]([facility] GME Team J) TELE CONSULT [id number] f/u diabete s labs TYLER FOSS 03/01 [employer]([facility] GME Team J) [employer]([facility] GME Team J) OUTPATIENT [id number] f/u diabete s & lab results USHA GOODE 03/29 Released w/o Limitations [employer]([facility] GME Team J) [employer]([facility] GME Team J) TELE CONSULT [id number] rx essie USHA GOODE 05/13 [employer]([facility] GME Team J) [employer]([facility] GME Team J) TELE CONSULT [id number] RX RENEWAL DERRICK CHAN LINDAN 06/21 [employer]([facility] GME Team J) [employer]([facility] GME Team J) OUTPATIENT [id number] med renewal FRANCIA CARDONA S 07/10 Released w/o Limitations [employer]([facility] GME Team J) [employer]([facility] Optometry ) OUTPATIENT [id number] DIABETE S MELLITU S UNDER CONTROL CANDY KELLY 07/29 Released w/o Limitations [employer]([facility] Optomet ry) [employer]([facility] GME Team J) TELE CONSULT [id number] dm f/u GIULIA COSTA T 12/12 [employer]([facility] GME Team J) [employer]([facility] GME Team J) OUTPATIENT [id number] check up USHA GOODE 05/12 Released w/o Limitations [employer]([facility] GME Team J) [employer]([facility] GME Team J) TELE CONSULT [id number] DISCUSS HEART MED USHA GOODE 05/13 [employer]([facility] GME Team J) [employer]([facility] GME Team J) TELE CONSULT [id number] dm f/u JULISSA [facility] T 06/03 Referred for Appointment [employer]([facility] GME Team J) [employer]([facility] GME Team J) TELE CONSULT [id number] dm f/u JULISSA GIULIA T 06/17 Referred for Appointment [employer]([facility] GME Team J) [employer]([facility] GME Team J) TELE CONSULT [id number] dm f/u JULISSA GIULIA T 06/27 Referred for Appointment [employer]([facility] GME Team J) [place] [facility] Outpatient Encounter [id number] 07/07 [place] [facility] [place] [facility] Outpatient Encounter [id number] 07/26 [facility] OFFICE O/P [place] 60 MIN [id number] Diagnos is: ICD-10- CM Z00.00 Encntr for general adult medical exam w/o abnorma l finding s
MATTI RICARDO M 07/26 [facility] Outpatient Encounter [id number] 08/14 [place] [facility] [place] [facility] Outpatient Encounter [id number] INOCENTE KU 09/01 [facility] MIRNA [facility] HC PRO PHONE CALL 5-10 MIN [id number] Diagnos is: ICD-10- CM I10 Essenti al (primar y) hyperte nsion<b r/> CASTILLO LARRY 09/08 [facility] Procedures Combined list of: 1) Procedures from Department of Veterans Affairs facilities going back up to thelast 18 months, not all [place] non-surgical procedures are included; 2) All procedures from the Department of Defense facilities. Procedure Procedure Type Code Date Perfomer Comments [facility] e FITTING OF SPECTACLES, EXCEPT FOR APHAKIA; MONOFOCAL 07/29/20 09 DoD FITTING OF SPECTACLES, EXCEPT FOR APHAKIA; MONOFOCAL 09/04/20 08 DoD INJECTION, [place] HCL, PER 1 MG 12/30/19 08 DoD FITTING OF SPECTACLES, EXCEPT FOR APHAKIA; MONOFOCAL 08/31/20 07 DoD OCCUPATIONAL THERAPY EVALUATION 08/16/20 07 DoD OPHTHALMOSCOPY, EXTENDED, WITH RETINAL DRAWING (EG, FOR RETINAL DETACHMENT, MELANOMA), WITH INTERPRETATION AND REPORT; INITIAL 08/23/20 DoD OCCUPATIONAL THERAPY EVALUATION 08/17/20 06 DoD INJECTION, MIDAZOLAM HCL, PER 1 MG 10/12/19 06 DoD DETERMINATION OF REFRACTIVE STATE 10/08/19 05 [facility] EDUCATIONAL SUPPLIES, SUCH BOOKS, TAPES, AND PAMPHLETS, FOR THE PATIENT'S EDUCATION AT COST TO PHYSICIAN OR OTHER QUALIFIED HEALTH LICENSED CLUB MANAGER 09/23/19 05 [facility] OPHTHALMOLOGICAL SERVICES: MEDICAL EXAMINATION AND EVALUATION, WITH INITIATION OR CONTINUATION OF DIAGNOSTIC AND TREATMENT PROGRAM; COMPREHENSIVE, ESTABLISHED PATIENT, 1 OR MORE VISITS 08/06/20 03 [facility] SIGMOIDOSCOPY, FLEXIBLE; WITH BIOPSY, SINGLE OR MULTIPLE 05/29/20 02 [facility] LIMITED BILATERAL NONINVASIVE PHYSIOLOGIC STUDIES OF UPPER OR LOWER EXTREMITY ARTERIES (EG,LOWER EXTREM:ANKLE/BRACH,DIS T POST TIB & ANT TIB/DORS PEDIS ART PLUS BIDIR,DOP WAVEFORM REC & ANAL, 1-2 LEV) 04/28/20 [facility] THERAPEUTIC PROCEDURE(S), GROUP (2 OR MORE INDIVIDUALS) 11/03/19 02 [facility] PHYS/OTH QUALIFIED HEALTH LICENSED CLUB MANAGER QUALIFIED,EDUCATION,TR AIN,LICENSURE/REGULATI ON (WHEN APPLICABLE) EDUC SER RENDERED TO PATS IN A GRP SETTING (EG,,OBESITY,O R DIABETIC INSTRUCT) 11/03/19 02 [facility] EDUCATIONAL SUPPLIES, SUCH BOOKS, TAPES, AND PAMPHLETS, FOR THE PATIENT'S EDUCATION AT COST TO PHYSICIAN OR OTHER QUALIFIED HEALTH LICENSED CLUB MANAGER 10/18/19 02 [facility] PHYS/OT QUALIFIED HEALTH LICENSED CLUB MANAGER QUALIFIED,EDUCATION,TR AIN,LICENSURE/REGULATI ON (WHEN APPLICABLE) EDUC SER RENDERED TO PATS IN A GRP SETTING (EG,,OBESITY,O R DIABETIC INSTRUCT) 10/18/19 [facility] EDUCATIONAL SUPPLIES, SUCH BOOKS, TAPES, AND PAMPHLETS, FOR THE PATIENT'S EDUCATION AT COST TO PHYSICIAN OR OTHER QUALIFIED HEALTH LICENSED CLUB MANAGER 10/11/19 02 [facility] PHYS/OTH QUALIFIED HEALTH LICENSED CLUB MANAGER QUALIFIED,EDUCATION,TR AIN,LICENSURE/REGULATI ON (WHEN APPLICABLE) EDUC SER RENDERED TO PATS IN A GRP SETTING (EG,,OBESITY,O R DIABETIC INSTRUCT) 10/11/19 02 [facility] PHYS/OTH QUALIFIED HEALTH LICENSED CLUB MANAGER QUALIFIED,EDUCATION,TR AIN,LICENSURE/REGULATI ON (WHEN APPLICABLE) EDUC SER RENDERED TO PATS IN A GRP SETTING (EG,,OBESITY,O R DIABETIC INSTRUCT) 09/08/20 [facility] DETERMINATION OF REFRACTIVE STATE 09/01/20 [facility] LIMITED BILATERAL NONINVASIVE PHYSIOLOGIC STUDIES OF UPPER OR LOWER EXTREMITY ARTERIES (EG,LOWER EXTREM:ANKLE/BRACH,DIS T POST TIB & ANT TIB/DORS PEDIS ART PLUS BIDIR,DOP WAVEFORM REC & ANAL, 1-2 LEV) 08/30/20 [facility] CORONARY ARTERIOGRAPHY USING TWO CATHETERS 06/20/20 [facility] ANGIOCARDIOGRAPHY OF LEFT HEART STRUCTURES 06/20/20 [facility] LEFT HEART CARDIAC CATHETERIZATION 06/20/20 [facility] INFUSION, NORMAL SALINE SOLUTION, 250 CC 06/19/20 [facility] ALCOHOL REHABILITATION 04/11 [facility] Determination Of Refractive State Determination Of Refractive State 73849 07/29/20 09 CANYD KELLY Spectacles Services Fitting Monofocal Except For Aphakia Spectacles Services Fitting Monofocal Except For Aphakia 05775 07/29/20 09 CANDY KELLY Ophthalmological Prior Patient Start [facility] Care Ophthalmological Prior Patient Start Comprehensive Care 07/29/20 09 CANDY KELLY Diabetic indicator; retinal eye exam, dilated, bilateral 07/29/20 09 CANDY KELLY [employer] [facility] Fitting Monofocal Except For Aphakia [facility] [facility] Fitting Monofocal Except For Aphakia 36655 09/05/20 08 RODOLFO ONEAL Determination Of Refractive State Determination Of Refractive State 09/05/20 08 RODOLFO ONEAL Fundus Photography Fundus Photography [id number] 08 RODOLFO ONEAL Diabetic indicator; retinal eye exam, dilated, bilateral 09/05/20 08 RODOLFO ONEAL Ophthalmological Prior Patient Start Comprehensive Care Ophthalmological Prior Patient Start Comprehensive Care 09/05/20 08 RODOLFO ONEAL Injection, midazolam HCl, per 1 mg 12/30/19 08 MORENA SPEAR Injection, fentanyl citrate, 0.1 mg 12/30/19 08 MORENA SPEAR Complete Colonoscopy 0 08 MORENA SPEAR [facility] [facility] Fitting Monofocal Except For Aphakia [facility] [facility] Fitting Monofocal Except For Aphakia 90841 08/31/20 07 CANDY KELLY Diabetic indicator; retinal eye exam, dilated, bilateral 08/31/20 07 CANDY KELLY Determination Of Refractive State Determination Of Refractive State 08/31/20 07 CANDY KELLY [facility] Ophthalmological Prior Patient Start Comprehensive Care Ophthalmological Prior Patient Start Comprehensive Care 65720 08/31/20 07 CANDY KELLY [facility] Occupational Therapy Evaluation Occupational Therapy Evaluation 20563 08/16/20 07 ANGEL LUIS BUSTILLOS [facility] Ophthalmological New Patient Start Comprehensive Care Ophthalmological New Patient Start Comprehensive Care 37508 08/23/20 06 YADIEL ALCALA [facility] Fundoscopic Exam Extensive Initial Exam Fundoscopic Exam Extensive Initial Exam 30847 08/23/20 06 YADIEL ALCALA [facility] Occupational Therapy Evaluation Occupational Therapy Evaluation 49965 08/17/20 06 PETE NOLAN 30 mins [facility] Social History Combined list of available smoking, tobacco, and other social history from Department of Defense and Veterans Affairs facilities. Social History Type Response Date Comment Sourc e Tobacco smoking status [facility] NEVER USED 07/26/2024 [facility] This section is an empty social history section. [facility] Plan of Care List of future care activities from Department of Veterans Affairs facilities. Additional future care activities may be listed in the Assessment and Plan section. Date/Time Care Activity Care Activity Detail Facili ty 01/05/2025 AMBULATORY - NONE AM[facility]ATORY - NONE [facility] 01/30/2025 AMBULATORY - MEDICINE AMBULATORY - MEDICI NE [facility]
--- OUTSIDE RECORDS SUMMARY | 2024-09-14 15:51 | XMS_ITS | Encounter Summary ---
Author Name [facility] [place] Organization [facility] [place] Address [address] [place] [address] Care Team Providers Care Gasateria Attendant Name Role Phone GANESH RICARDO Primary Care Provider Unavailabl e Insurance Providers: [...] PART A Jun 20, 2010 PART A [id number] [phone] Adriana OSBORN PATIENT MEDICARE (WNR) MEDICARE (M) PART B Jun 20, 2010 PART B [id number] [phone] Adriana OSBORN PATIENT Selected Encounter This section includes the information on record at [place] for the Encounter. Date/Time Encounter Type Encounter Description Reason Provider Source Sep 01, 2024 05:32 PM Outpatient Encounter ADMIN PAT ACTIVTIES (MASNONCT) MARCOS KU Encounter Template Text not used by [place] Plan of Treatment: Future Appointments (+ 6 [...] 20 appointments. The data comes from all [place] treatment facilities. Appointment Date/Time Appointment Type Appointme nt Facility Name Sep 08, 2024 10:00 AM AMBULATORY - [...] and Hematology Lab Results on record with [place] for the patient. Radiology Reports and Pathology [...] Aug 01, 2024 09:28 AM Reporting Lab: [facility] [place] [address] Performing Lab: [facility] [place] [address] B 12 318 pg/mL 213-816 Aug 08, 2024 02:18 PM [facility] FOLATE Specimen Type: SERUM No comment entered. Ordering Provider: GANESH RICARDO Report Released Date/Time: Aug 01, 2024 09:28 AM Reporting Lab: [facility] [place] [address] Performing Lab: [facility] [place] [address] FOLATE 9.7 ng/mL >7.0 Aug 08, 2024 02:18 PM [facility] IRON GROUP Specimen Type: PLASMA No comment entered. Ordering Provider: GANESH RICARDO Report Released Date/Time: Aug 01, 2024 09:28 AM Reporting Lab: [facility] [place] [id number] Performing Lab: [facility] [place] [address] IRON 47 ug/dL L 65-175 TIBC,CALCULATE D 250 ug/dL 250-425 FERRITIN 98.5 ng/mL 21.8-274.7 IRON SATURATION 19 L 20-50 TRANSFERRIN 200 mg/dL 163-382 Encounter Notes: All associated encounter notes This section contains the clinical notes associated to the Encounter. Date/Time Encounter Note(s) Provider Source Sep 05, 2024 06:17 AM ADDENDUM: LOCAL TITLE: Addendum STANDARD TITLE: ADDENDUM DATE OF NOTE: SEP 05, 2024@06:17:01 ENTRY DATE: SEP 05, 2024@06:17:02 AUTHOR: EARL MARES EXP COSIGNER: URGENCY: STATUS: COMPLETED was seen in a [facility] ED. Records uploaded to chart. Please review and follow up as appropriate. /naun/ DEBORAH SWIFT ADVANCED HAND PLEATER Signed: 09/05/2024 06:17 Receipt Acknowledged By: 09/07/2024 08:50 /es/ CASTILLO LARRY RN RN, [facility] 09/05/2024 20:27 /es/ GANESH RICARDO, CHRIS, PMO ANALYST, CORPORATE STRATEGY ASSOCIATE-[facility] NURSE PRACTITIONER --- Original Document --- 08/30/24 [facility] PRESENTING CARE COORD PLAN NOTE: Emergency Notification Intake Date Presenting to the Facility: Aug Method of Contact: Notified from [employer] worklist Notification ID: [id number] [facility] Referral #: [facility] Hospital Name: Hospital: [facility] Address: [address] [place] [address] City: [place] State: [place] Zip Code: [address] Phone : [facility] Point of Contact: Name: Phone: Chief complaint: High sweats, sweating, high blood pressure Primary Diagnosis: Disposition Discharged Date of discharge: Aug Discharge to home /naun/ CHEL MOJICA [employer] MINE Signed: 09/01/2024 17:34 Receipt Acknowledged By: 09/04/2024 15:34 /es/ Marcos Ku MA, PHN, RN-BC er rn Vaccinator 08/30/2024 ADDENDUM STATUS: COMPLETED VistA Imaging Scanned Document - Addendum. ED 08-30-2024 [facility] SCANNED DOCUMENT SIGNATURE NOT REQUIRED Electronically Filed: 09/05/2024 by: DEBORAH SWIFT ADVANCED HAND PLEATER 09/07/2024 ADDENDUM STATUS: COMPLETED RTC order placed for RN f/u /naun/ CASTILLO LARRY RN RN, [facility] Signed: 09/07/2024 08:50 EARL MARES [facility] Aug 30, 2024 05:33 PM NONVA NOTE: LOCAL TITLE: [facility] PRESENTING CARE COORD PLAN STANDARD TITLE: NONVA NOTE DATE OF NOTE: AUG 30, 2024@17:33 ENTRY DATE: SEP 01, 2024@17:33:23 AUTHOR: CHEL MOJICA COSIGNER: URGENCY: STATUS: COMPLETED [facility] PRESENTING CARE COORD PLAN NOTE Has ADDENDA Emergency Notification Intake Date Presenting to the Facility: Aug Method of Contact: Notified from [employer] worklist Notification ID: [id number] [facility] Referral #: [facility] Hospital Name: Hospital: [facility] Address: [address] [place] [address] City: [place] State: [place] Zip Code: [address] Phone : [facility] Facility Point of Contact: Name: Phone: Chief complaint: High sweats, sweating, high blood pressure Primary Diagnosis: Disposition Discharged Date of discharge: Aug Discharge to home /naun/ CHEL MOJICA [employer] Signed: 09/01/2024 17:34 Receipt Acknowledged By: 09/04/2024 15:34 /naun/ Marcos Ku MA PHOsiris, RN-BC er rn Vaccinator 08/30/2024 ADDENDUM STATUS: COMPLETED VistA Imaging Scanned Document - Addendum. ED 08-30-2024 [facility] SCANNED DOCUMENT SIGNATURE NOT REQUIRED Electronically Filed: 09/05/2024 by: DEBORAH SWIFT ADVANCED HAND PLEATER 09/05/2024 ADDENDUM STATUS: COMPLETED [place] was seen in a [facility] ED. Records uploaded to chart. Please review and follow up as appropriate. /naun/ DEBORAH SWIFT ADVANCED HAND PLEATER Signed: 09/05/2024 06:17 Receipt Acknowledged By: 09/07/2024 08:50 /naun/ CASTILLO LARRY RN RN, [facility] 09/05/2024 20:27 /naun/ GANESH RICARDO, DNP, PMO ANALYST, CORPORATE STRATEGY ASSOCIATE-[facility] NURSE PRACTITIONER 09/07/2024 ADDENDUM STATUS: COMPLETED RTC order placed for RN f/u /naun/ CASTILLO LARRY RN RN, [facility] Signed: 09/07/2024 08:50 CHEL MOJICA [facility]
--- OUTSIDE RECORDS SUMMARY | 2024-09-14 15:51 | XMS_ITS | Encounter Summary ---
Author Name [facility] Organization [facility] [place] [facility] [place] Address [address] [place] [id number] Care Team Providers Care Mixer Driver Name Role Phone GANESH RICARDO Primary Care [...] PART A Jun 20, 2010 PART A [id number] [phone] Adriana OSBORN PATIENT MEDICARE (WNR) MEDICARE (M) PART B Jun 20, 2010 PART B [id number] [phone] Adriana OSBORN PATIENT Selected Encounter This section includes the information on record at [place] for the Encounter. Date/Time Encounter Type Encounter Description Reason Provider Source Sep 08, 2024 10:00 AM HC PRO PHONE CALL 5-10 MIN TELEPHONE PRIMARY CARE ICD-10-CM I10 Essential (primary) hypertension SHAR LARRY Encounter Template Text not used by [place] Assessments - Encounter Diagnoses This section includes the primary and secondary diagnoses documented for the Encounter. Date/Time Primary/Secondary Diagnosis Diagnosis Name Provider Source Sep 08, 2024 10:00 AM PRIMARY Essential (primary) hypertension ANAT LARRY [facility] Sep 08, 2024 10:00 AM SECONDARY Encntr for general adult medical exam w/o abnormal findings ANAT LARRY [facility] Plan of Treatment: Future Appointments (+ 6 months) and Future Tests (+/- 45 days) The Plan of Treatment section includes future care activities for the patient from all [place] treatmentfacilities. This section includes future appointments and future orders which are active, pending or scheduled. Future Appointments This section includes appointments that were scheduled to occur 6 months from the date of the Encounter, up to a maximum of 20 appointments. The data comes from all [place] treatment facilities. Appointment Date/Time Appointment Type Appointme nt Facility Name Jan 05, 2025 10:45 AM AMBULATORY - NONE [facility] January 30, 2025 01:00 PM AMBULATORY - MEDICINE [facility] Social History: Smoking Status (Most current) and Tobacco Use (All prior to encounter date) This section includes the most current, and the historical, smoking and tobacco- related health factors from the [facility] facility where the [facility]counter took place. Current Smoking Status This section includes the most current smoking, or tobacco-related health factor, from the [facility] facility where the Encounter took place. Date/Time Current Smoking Status Comment Shashi james Jul 26, 2024 02:00 PM VA-TOBACCO NEVER USED [facility] Encounter Notes: All associated encounter notes This section contains the clinical notes associated to the Encounter. Date/Time Encounter Note(s) Provider Source Sep 08, 2024 04:47 PM REPORT OF CONTACT: LOCAL TITLE: PATIENT CONTACT NOTE STANDARD TITLE: REPORT OF CONTACT DATE OF NOTE: SEP 08, 2024@16:47 ENTRY DATE: SEP 08, 2024@16:47:32 AUTHOR: CASTILLO LARRY COSIGNER: URGENCY: STATUS: COMPLETED Patient contact Name of : TROY OSBORN Name/Relationship of Contact if other than [place]: Date & Time of Contact: Aug@16:49 Type of Contact: Telephone Reason for Contact: -ED f/u Per , he is feeling better since the ED, but he does need to f[facility] with [facility]. 's ED notes state F/u with PCP for ongoing hypertension and low platelets PCP f/u ordered. verbalized understanding and agreed to plan of care. /naun/ CASTILLO LARRY RN RN, [facility] Signed: 09/08/2024 16:52 CASTILLO LARRY [facility]
--- OUTSIDE RECORDS SUMMARY | 2024-09-14 15:51 | XMS_ITS | Encounter Summary ---
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 Date/Time Encounter Type Encounter Description Reason Provider Source Jul 26, 2024 02:00 PM OFFICE O/P NEW [place] 60 MIN PRIMARY CARE/MEDICINE ICD-10-CM Z00.00 Encntr for general adult medical exam w/o abnormal findings GANESH RICARDO IHEdwin Encounter Template Text not used by [facility] Assessments - Encounter Diagnoses This section includes the primary and secondary diagnoses documented for the Encounter. Date/Time Primary/Secondary Diagnosis Diagnosis Name Provider Source Jul 26, 2024 08:31 PM PRIMARY Encntr for general adult medical exam w/o abnormal findings [facility] Jul 26, 2024 08:31 PM SECONDARY Anemia, unspecified [facility]AN[facility] Jul 26, 2024 08:31 PM SECONDARY Chronic kidney disease, unspecified [facility]AN[facility] Jul 26, 2024 08:31 PM SECONDARY Contact with and exposure to other hazardous substances G[facility] Jul 26, 2024 08:31 PM SECONDARY Elevated white blood cell count, unspecified [facility] Jul 26, 2024 08:31 PM SECONDARY Essential (primary) hypertension GAN[facility] Jul 26, 2024 08:31 PM SECONDARY Mixed hyperlipidemia [facility]AN[facility] Jul 26, 2024 08:31 PM SECONDARY Type 2 diabetes mellitus without complications GANESH RICARDO [facility] Plan of Treatment: Future Appointments (+ 6 months) and Future Tests (+/- 45 days) The Plan of Treatment section includes future care activities for the patient from all [place] treatmentfacilities. This section includes future appointments and future orders which are active, pending or scheduled. Future Appointments This section includes appointments that were scheduled to occur 6 months from the date of the Encounter, up to a maximum of 20 appointments. The data comes from all [place] treatment facilities. Appointment Date/Time Appointment Type Appointme nt Facility Name Aug 08, 2024 02:20 PM AMBULATORY - MEDICINE [facility] Sep 01, 2024 05:32 PM AMBULATORY - NONE [place] [facility] Sep 08, 2024 10:00 AM AMBULATORY - MEDICINE [facility] Sep 08, 2024 10:15 AM AMBULATORY - NONE [facility] Jan 05, 2025 10:45 AM AMBULATORY - NONE [facility] Lab Results: +/- 30 days of the encounter This section includes the Chemistry and Hematology Lab Results on record with [facility] for the patient. Radiology Reports and Pathology Reports are provided separately, in subsequent sections. Lab Results This section contains the Chemistry/Hematology Results that were resulted 30 days before or 30 daysafter the date of the Encounter. Date/Time Source Result Type Result - Unit Interpretation Reference Range Comment Aug 08, 2024 02:18 PM [facility] B 12 Specimen Type: SERUM No comment entered. Ordering Provider: GANESH RICARDO Report Released Date/Time: Aug 01, 2024 09:28 AM Reporting Lab: [facility] [id number] Performing Lab: [facility] [id number] B 12 318 pg/mL 213-816 Aug 08, 2024 02:18 PM [facility] FOLATE Specimen Type: SERUM No comment entered. Ordering Provider: GANESH RICARDO Report Released Date/Time: Aug 01, 2024 09:28 AM Reporting Lab: [facility] [phone] Performing Lab: [facility] [phone] FOLATE 9.7 ng/mL >7.0 Aug 08, 2024 02:18 PM [facility] IRON GROUP Specimen Type: PLASMA No comment entered. Ordering Provider: GANESH RICARDO Report Released Date/Time: Aug 01, 2024 09:28 AM Reporting Lab: [facility] [phone] Performing Lab: [facility] [phone] IRON 47 ug/dL L 65-175 TIBC,CALCULATED 250 ug/dL 250-425 FERRITIN 98.5 ng/mL 21.8-274.7 IRON SATURATION 19 L 20-50 TRANSFERRIN 200 mg/dL 163-382 Jul 26, 2024 03:26 PM [facility] CBC & DIFF Specimen Type: BLOOD Comment: Automated Differential Performed Ordering Provider: GANESH RICARDO Report Released Date/Time: Jul 26, 2024 02:56 PM Reporting Lab: [facility] [phone] Performing Lab: [facility] [phone] WBC 6.9 4.0-11.0 RBC 4.44 L 4.60-6.20 [...] Jul 26, 2024 02:56 PM Reporting Lab: [facility] [phone] Performing Lab: [facility] [address] CREATININE 1.0 mg/dL 0.7-1.2 UREA NITROGEN 23 [...] >60 Jul 26, 2024 03:26 PM [facility] HEMOGLOBIN A1C Specimen Type: BLOOD Comment: Values [...] Jul 26, 2024 02:56 PM Reporting Lab: [facility] [phone] Performing Lab: [facility] [phone] HEMOGLOBIN A1C 6.4 H 4.0-6.0 Jul 26, 2024 03:26 PM [facility] LIPID PANEL,NON-FASTING Specimen Type: PLASMA No comment entered. Ordering Provider: GANESH RICARDO Report Released Date/Time: Jul 26, 2024 02:56 PM Reporting Lab: [facility] [phone] Performing Lab: [facility] [address] CHOLESTEROL 215 mg/dL H <199 .HDL 83 mg/dL >40 LDL CALCULATION 117 mg/dL H <99 VLDL CALCULATION 15 mg/dL <29 NON HDL CHOLESTEROL 132 mg/dL H <129 TRIG(NON FASTING) 76 mg/dL <149 Jul 26, 2024 03:26 PM [facility] ANTI-HEP C(EIA) Specimen Type: SERUM No comment entered. Ordering Provider: GANESH RICARDO Report Released Date/Time: Jul 26, 2024 02:56 PM Reporting Lab: [facility] [phone] Performing Lab: [facility] [phone] ANTI-HEP C(EIA) NEGATIVE NEGATIVE Vital Signs: All taken on the encounter date This section contains inpatient and outpatient Vital Signs collected on the date of the Encounter. Date/Time Temperature Pulse Blood Pressure Respiratory Rate SP02 Pain Height Weight Body Mass Index Source Jul 26, 2024 02:27 PM 98.6 80 140/78 20 97 0 121.7 [facility] Social History: Smoking Status (Most current) and Tobacco Use (All prior to encounter date) This section includes the most current, and the historical, smoking and tobacco- related health factors from the [place] facility where the Encounter took place. Current Smoking Status This section includes the most current smoking, or tobacco-related health factor, from the [place] facility where the Encounter took place. Date/Time Current Smoking Status Comment Shashi james Jul 26, 2024 02:00 PM VA-TOBACCO NEVER USED [facility] Encounter Notes: All associated encounter notes This section contains the clinical notes associated to the Encounter. Date/Time Encounter Note(s) Provider Source Jul 27, 2024 10:18 AM ADDENDUM: LOCAL TITLE: Addendum STANDARD TITLE: ADDENDUM DATE OF NOTE: JUL 27, 2024@10:18:19 ENTRY DATE: JUL 27, 2024@10:18:20 AUTHOR: GANESH RICARDO EXP COSIGNER: URGENCY: STATUS: COMPLETED New patient who would like to discuss VA policies and resources with . Please give him a call. /naun/ GANESH RICARDO DNP, CHEMICAL UNIT OPERATOR, OPERATOR SPECIALIST [facility] NURSE PRACTITIONER Signed: 07/27/2024 10:20 Receipt Acknowledged By: 07/28/2024 11:20 /es/ [facility] [place] --- Original Document --- 07/26/24 [facility] ANNUAL VISIT: Today's Nurse check-in note reviewed. Co-managed care with a non-VA provider. HPI: The patient is a 79 year old MALE here accompanied by his daughter for Wellness and preventive medicine visit and to establish care at the [facility]. The patient has no concerns today. Review of Systems: Denies chest pain, shortness of breath, recent significant weight changes, rash, bowel or bladder changes, new joint pain or swelling, headaches, lightheadedness, vision changes, new numbness or tingling or weakness. Remainder of 10 point ROS is negative, except as above. 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 Highest level of education: 12th grade Tobacco use: Former cigarettes; 09/20/1975-09/20/2000, 2PPD, 25 yrs Alcohol use: former use; 6 pack per day quit in 1992 Substance use: Denies Health maintenance: Physical activity: Active Diet: Good Dental care: routine Family history: Father: Mother: Surgical history: Appendectomy; 1962, coronary angioplasty with stent placement; 2000, cystoscopy bilateral retrograde pyelograms, bilateral ureteral stent; 2017 Allergies: Patient has answered NKA Physical Exam: Vitals: BP: 140/78 (07/26/2024 14:27) P: 80 (07/26/2024 14:) R: 20 (07/26/2024:) T: 98.6 F [37.0 C] (07/26/2024 14:) WT: 121.7 lb [55.20 kg] (07/26/2024:) BMI: BMI not available without height Pain: 0 (07/26/2024:) O2 Sat: 97% (07/26/2024:) General: Alert, well dressed and groomed, no apparent distress HEENT: ear canals clear, TMs normal, OP clear, neck supple without mass, adenopathy or thyromegaly Lungs: Clear; no wheezes or crackles CV: RRR without murmur, no lower extremity edema GI: Abdomen non distended, soft, non tender, normal bowel sounds, no mass or HSM Skin: Warm and moist, no rash or erythema in exposed areas MS: ambulates without difficulty Psych: Good eye contact, speech normal rate and rhythm, affect full range Assessment/Plan: #Wellness/screening visit completed. #Anaemia - labs #Chronic kidney disease - labs #Diabetes mellitus type 2 - labs #Mixed hyperlipidaemia - labs #Essential hypertension BP reading noted to be elevated. Pt advised to continue with home BP monitoring. Call/RTC if BP remains consistently elevated #Hx of Leucocytosis - labs #All other chronic conditions are stable Drift understands and agrees to the plan. Follow up as discussed. Sooner if questions or concerns. Toxic Exposure Screening: The Drift/caregiver was asked if they believe the Drift experienced any toxic exposure(s), such as Airborne Hazards and Open Burn Pit, [place] War related exposures, Agent [place], Radiation, contaminated water at [employer] or other such exposures, while serving in the Armed Forces. /caregiver believes the was exposed to the following while serving in the Armed Forces: Agent [place]: /caregiver was made aware of educational resources that includes information on the Registry Program, presumptive conditions and how to file a claim. Printed information was offered and provided if desired. /caregiver has health or medical concerns related to their concern of environmental exposure. Concern: History prostate cancer, DM2 No questions at this time Drift/caregiver was informed of local points of contact. Contact information for local resources: - Veterans Benefits for claims submission: Have the call or have them visit the following web address for online scheduling: [email or web address] - [place] Healthcare Enrollment: -VETS (1674) - Find a Drift Customer Care Agent (VSO): Have the call [phone] or look up their VSO at: https://www.iKnowlo.org/find -a-cvso.html - [facility] [place] Navigators: Anabell Almanza [facility] [phone] The following connections were provided to the /caregiver: Veterans Benefits Administration (VBA) for Benefits/claims: Hepatitis C Testing: Patient has given verbal consent for HCV antibody testing. An HCV lab test has been ordered - see orders tab. /naun/ GANESH RICARDO DNP, APRN, [facility] NURSE PRACTITIONER Signed: 07/26/2024 20:33 07/26/2024 ADDENDUM STATUS: COMPLETED Alerting RN to please inform patient of the recent lab results and follow up recommendations. /brian RICARDO DNP, APRN, [facility] NURSE PRACTITIONER Signed: 07/26/2024 21:58 Receipt Acknowledged By: * AWAITING SIGNATURE * CASTILLO LARRY [facility]ANE [facility] Jul 26, 2024 09:57 PM ADDENDUM: LOCAL TITLE: Addendum STANDARD TITLE: ADDENDUM DATE OF NOTE: JUL 26, 2024@21:57:42 ENTRY DATE: JUL 26, 2024@21:57:43 AUTHOR: GANESH RICARDO EXP COSIGNER: URGENCY: STATUS: COMPLETED Alerting RN to please inform patient of the recent lab results and follow up recommendations. /naun/ GANESH RICARDO DNP, CHEMICAL UNIT OPERATOR, OPERATOR SPECIALIST [facility] NURSE PRACTITIONER Signed: 07/26/2024 21:58 Receipt Acknowledged By: 08/01/2024 09:22 /es/ CASTILLO LARRY RN RN, [facility] --- Original Document --- 07/26/24 [facility] ANNUAL VISIT: Today's Nurse check-in note reviewed. Co-managed care with a non-VA provider. HPI: The patient is a 79 year old MALE here accompanied by his daughter for Wellness and preventive medicine visit and to establish care at the [facility]. The patient has no concerns today. Review of Systems: Denies chest pain, shortness of breath, recent significant weight changes, rash, bowel or bladder changes, new joint pain or swelling, headaches, lightheadedness, vision changes, new numbness or tingling or weakness. Remainder of 10 point ROS is negative, except as above. 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 Highest level of education: 12th grade Tobacco use: Former cigarettes; 09/20/1975-09/20/2000, 2PPD, 25 yrs Alcohol use: former use; 6 pack per day quit in 1992 Substance use: Denies Health maintenance: Physical activity: Active Diet: Good Dental care: routine Family history: Father: Mother: Surgical history: Appendectomy; 1962, coronary angioplasty with stent placement; 2000, cystoscopy bilateral retrograde pyelograms, bilateral ureteral stent; 2018 Allergies: Patient has answered NKA Physical Exam: Vitals: BP: 140/78 (07/26/2024 14:27) P: 80 (07/26/2024 14:) R: 20 (07/26/2024:) T: 98.6 F [37.0 C] (07/26/2024:) WT: 121.7 lb [55.20 kg] (07/26/2024:) BMI: BMI not available without height Pain: 0 (07/26/2024:) O2 Sat: 97% (07/26/2024:) General: Alert, well dressed and groomed, no apparent distress HEENT: ear canals clear, TMs normal, OP clear, neck supple without mass, adenopathy or thyromegaly Lungs: Clear; no wheezes or crackles CV: RRR without murmur, no lower extremity edema GI: Abdomen non distended, soft, non tender, normal bowel sounds, no mass or HSM Skin: Warm and moist, no rash or erythema in exposed areas MS: ambulates without difficulty Psych: Good eye contact, speech normal rate and rhythm, affect full range Assessment/Plan: #Wellness/screening visit completed. #Anaemia - labs #Chronic kidney disease - labs #Diabetes mellitus type 2 - labs #Mixed hyperlipidaemia - labs #Essential hypertension BP reading noted to be elevated. Pt advised to continue with home BP monitoring. Call/RTC if BP remains consistently elevated #Hx of Leucocytosis - labs #All other chronic conditions are stable understands and agrees to the plan. Follow up as discussed. Sooner if questions or concerns. Toxic Exposure Screening: The Drift/caregiver was asked if they believe the experienced any toxic exposure(s), such as Airborne Hazards and Open Burn Pit, [place] War related exposures, Agent [place], Radiation, contaminated water at [place] or other such exposures, while serving in the Armed Forces. Drift/caregiver believes the was exposed to the following while serving in the Armed Forces: Agent [place]: /caregiver was made aware of educational resources that includes information on the Registry Program, presumptive conditions and how to file a claim. Printed information was offered and provided if desired. /caregiver has health or medical concerns related to their concern of environmental exposure. Concern: History prostate cancer, DM2 No questions at this time /caregiver was informed of local points of contact. Contact information for local resources: - Veterans Benefits for claims submission: Have the call or have them visit the following web address for online scheduling: [email or web address] - [place] Healthcare Enrollment: -VETS (6088) - Find a Customer Care Agent (VSO): Have the call [phone]-[phone] or look up their VSO at: https://www.iKnowlo.org/find -a-cvso.html - [facility] [place] Navigators: [facility] [phone] The following connections were provided to the /caregiver: Veterans Benefits Administration (VBA) for Benefits/claims: Hepatitis C Testing: Patient has given verbal consent for HCV antibody testing. An HCV lab test has been ordered - see orders tab. /naun/ GANESH RICARDO DNP, APRN, [facility] NURSE PRACTITIONER Signed: 07/26/2024 20:33 07/27/2024 ADDENDUM STATUS: COMPLETED New patient who would like to discuss VA policies and resources with . Please give him a call. /naun/ GANESH RICARDO DNP, APRN, [facility] NURSE PRACTITIONER Signed: 07/27/2024 10:20 Receipt Acknowledged By: 07/28/2024 11:20 /es/ [facility] Jul 26, 2024 09:47 PM LETTERS: LOCAL TITLE: FOLLOW UP RESULTS LETTER STANDARD TITLE: LETTERS DATE OF NOTE: JUL 26, 2024@21:47 ENTRY DATE: JUL 26, 2024@21:47:37 AUTHOR: GANESH RICARDO EXP COSIGNER: URGENCY: STATUS: COMPLETED [facility] [address] [place] [address] Jul TROY OSBORN [id number] [address] [address] Dear Drift: You should be receiving another letter with the results of the tests you had done at the [facility]. 1. I have reviewed the results and your cholesterol is elevated. You can lower your LDL, or bad, cholesterol by avoiding red meat, butter, fried foods, cheese, and other foods that have a lot of saturated fat. Avoiding sugary foods, fried foods, and excess alcohol. I also recommend regular physical activity, eating foods that are rich in omega 3 oils and retesting cholesterol in 6 months. 2. Your labs results indicate that you have anemia. Iron deficiency (too little iron) anemia occurs when there is insufficient iron in the body to make hemoglobin. Symptoms of iron deficiency vary from person to person. Iron deficiency can cause symptoms including: Weakness, headache, irritability and fatigue. Causes of anemia include, blood loss, decreased iron absorption or low iron intake in diet. I recommend that you return to the lab for further testing. If you have further questions or problems, please contact the call center at [phone] to speak with a nurse or leave me a message Sincerely, GANESH RICARDO, DNP, CHEMICAL UNIT OPERATOR, OPERATOR SPECIALIST [facility] NURSE PRACTITIONER [facility] Jul 26, 2024 02:27 PM PRIMARY CARE NURSI JM NOTE: LOCAL TITLE: [facility] NURSING PROGRESS NOTE STANDARD TITLE: PRIMARY CARE NURSING NOTE DATE OF NOTE: JUL 26, 2024@14:27 ENTRY DATE: JUL 26, 2024@14:28:01 AUTHOR: RELL CABAN EXP COSIGNER: URGENCY: STATUS: COMPLETED TYPE OF VISIT: Appointment Check In Type of appointment: In-person appointment REASON FOR VISIT: annual New [facility] with [facility] ALLERGIES: Patient has answered NKA VITAL SIGNS: Blood Pressure: 140/78 (07/26/2024 14:27) Pulse: 80 (07/26/2024 14:27) Respiration: 20 (07/26/2024 14:27) Temperature: 98.6 F [37.0 C] (07/26/2024 14:27) Weight: 121.7 lb [55.20 kg] (07/26/2024 14:27) Height: BMI: BMI not available without height O2 Sat: 97% (07/26/2024 14:27) Pain: 0 (07/26/2024 14:27) PAIN SCREEN: Patient is not having significant pain that they wish to discuss with their provider today. Toxic Exposure Screening: The Drift/caregiver was asked if they believe the experienced any toxic exposure(s), such as Airborne Hazards and Open Burn Pit, [place] War related exposures, Agent [place], Radiation, contaminated water at [place] or other such exposures, while serving in the Armed Forces. 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 Printed information was offered and provided if desired. No questions at this time /caregiver was informed of local points of contact. Contact information for local resources: - Veterans Benefits for claims submission: Have the call or have them visit the following web address for online scheduling: [email or web address] - [place] Healthcare Enrollment: 4-404-468-CLO [employer] (5882) - Find a Drift Customer Care Agent (VSO): Have the call [phone]-[phone] or look up their VSO at: https://www.iKnowlo.org/find -a-cvso.html - [facility] [place] Navigators: Anabell Almanza [facility] [phone] Toxic Exposure Screening Follow-Up reminder is needed. Name of person notified: lety getting on registry COVID-19 Immunization: Refused Pfizer Monovalent COVID-19 vaccine Immunization: COVID-19 (PFIZER), MRNA, LNP-S, PF, BOOKER-SUCROSE, 30 MCG/0.3 ML (AGES 12+ YEARS) Refusal Reason: PATIENT DECISION Patient refuses all immunization(s) in the COVID-19 group Date Documented: 07/26/24 14:42 Suicide Screen: C-SSRS Screening [place] Suicide Severity Rating Scale (C-SSRS) screener 1. Over the past month, have you wished you were or wished you could go to sleep and not wake up? No 2. Over the past month, have you had any actual thoughts of killing yourself? No 3. Over the past month, have you been thinking about how you might do this? Response not required due to responses to other questions. 4. Over the past month, have you had these thoughts and had some intention of acting on them? Response not required due to responses to other questions. 5. Over the past month, have you started to work out or worked out the details of how to kill yourself? Response not required due to responses to other questions. 6. If yes, at any time in the past month did you intend to carry out this plan? Response not required due to responses to other questions. 7. In your lifetime, have you ever done anything, started to do anything, or prepared to do anything to end your life (for example, collected pills, obtained a gun, gave away valuables, went to the roof but didn't jump)? No 8. If YES, was this within the past 3 months? Response not required due to responses to other questions. Influenza Immunization: Deferral / Refusal The patient declines to receive the recommended dose of seasonal influenza vaccine. Immunization: INFLUENZA, UNSPECIFIED FORMULATION Refusal Reason: PATIENT DECISION Patient refuses all immunization(s) in the FLU group Date Documented: 07/26/24 14:42 Tobacco Pack Year History: Patient never smoked cigarettes or smoked FEWER THAN 100 cigarettes/lifetime Depression Screening: Perform PHQ-2 A PHQ-2 screen was performed. The score was 0 which is a negative screen for depression. Over the past two weeks, how often have you been bothered by the following problems? 1. Little interest or pleasure in doing things Not at all 2. Feeling down, depressed, or hopeless Not at all Alcohol Use Screen (AUDIT-C): Alcohol Screen: SCREEN FOR ALCOHOL (AUDIT-C) An alcohol screening test (AUDIT-C) was negative (score=0). 1. How often did you have a drink containing alcohol in the past year? Consider a drink to be a 12 ounce can or bottle of regular beer, 8 ounces of malt liquor, a 5 ounce glass of table wine, or a 1.5 ounce shot of liquor (like scotch, gin, or vodka). Never 2. How many drinks containing alcohol did you have on a typical day when you were drinking in the past year? Response not required due to responses to other questions. 3. How often did you have six or more drinks on one occasion in the past year? Response not required due to responses to other questions. PTSD Screening: PC-PTSD-5 A PTSD screening test (PC-PTSD-5) was negative (score=0). IN THE PAST MONTH, have you ever had any experience that was so frightening, horrible or traumatic. For example: A serious accident or fire a physical or sexual assault or abuse An earthquake or flood A war Seeing someone be killed or seriously injured Having a loved one through homicide or suicide 1. Have you ever experienced this kind of event? NO 2. Had nightmares about the event(s) or thought about the event(s) when you did not want to? Response not required due to responses to other questions. 3. Tried hard not to think about the event(s) or went out of your way to avoid situations that reminded you of the event(s)? Response not required due to responses to other questions. 4. Been constantly on guard, watchful, or easily startled? Response not required due to responses to other questions. 5. [place] numb or detached from people, activities, or your surroundings? Response not required due to responses to other questions. 6. [place] guilty or unable to stop blaming yourself or others for the event(s) or any problems the event(s) may have caused? Response not required due to responses to other questions. Nursing Annual Screening: Whole Health Screen is due OR due soon (within 90 days). Fall History Screen During the past 12 months, have you had any falls? Patient does not report any falls in the past 12 months. MEDICATIONS: Patient is on one of the following medication classes: Antihypertensives, Antidepressants, Antipsychotics, Diuretics, or Controlled substance medication used for pain. Script Talk Screen Are you able to read your prescription bottles with your glasses, magnifiers or other aids? Yes or patient not taking any prescriptions. Skin Screen Patient reports any current pressure ulcers, a history of pressure ulcers, or a wound from a medical education manager or Patient is bed-confined or a wheelchair-user or Patient requires assistance to transfer/change position No, Skin Screen is Negative Home Abuse/Violence Screen Is your home free of abuse and violence? Yes Outpatient Nutrition Screen Body Mass Index (BMI)= BMI not available without height [place]: No data available [place] Hgb A1C: No data available [place] Hgb A1C: No data available Point of Care Hgb A1C: POC HGB A1C____ Is patient's BMI less than 18.5? No Does patient have swallowing, coughing, or chewing problems affecting oral intake? No Has patient experienced unplanned weight loss or gain greater than 10 pounds over the last 2 months? No Is patient's Hgb A1C (Glycosylated Hemoglobin) greater than 9.5? No Is patient receiving Total Parenteral Nutrition (TPN) or Tube Feedings? No Patient Health Education Screen BARRIERS/SPECIAL NEEDS: Visual limitations PREFERRED STYLE OF LEARNING: Watching something Listening Reading Client Assistive Service (FOX) Screen Does the patient require assistance with outpatient visit? No MST Screening: Patient denies experiencing sexual trauma (MST). Tobacco Use Screening: The patient has never used tobacco. Herpes Zoster (Shingles) Vaccine: The patient declines to receive the recommended dose of zoster (shingles) vaccine. Immunization: ZOSTER RECOMBINANT Refusal Reason: PATIENT DECISION Patient refuses all immunization(s) in the ZOSTER group Date Documented: 07/26/24 14:46 Td / Tdap Immunization: The patient declines to receive the recommended dose of Td/Tdap vaccine. Immunization: TD(ADULT) UNSPECIFIED FORMULATION Refusal Reason: PATIENT DECISION Patient refuses all immunization(s) in the Td group Date Documented: 07/26/24 14:47 Homelessness/Food Insecurity Screen: In the past 2 months, have you been living in stable housing that you own, rent, or stay in as part of a household? Yes - Living in stable housing. Are you worried or concerned that in the next 2 months you may NOT have stable housing that you own, rent, or stay in as part of a household? No - Not worried about housing near future The reports the following: Within the past 12 months, you worried whether your food would run out before you got money to buy more. Never true Within the past 12 months, the food you bought just didn't last and you didn't have money to get more. Never true Food Assistance Programs [facility] Food Assistance [facility] GUSTAVO /naun/ RELL CABAN LPN LICENSED PRACTICAL NURSE Signed: 07/26/2024 14:47 RELL CABAN CB Jul 26, 2024 02:02 PM H & P NOTE: LOCAL TITLE: CBOC ANNUAL VISIT STANDARD TITLE: H & P NOTE DATE OF NOTE: JUL 26, 2024@14:02 ENTRY DATE: JUL 26, 2024@14:02:59 AUTHOR: GANESH RICARDO COSIGNER: URGENCY: STATUS: COMPLETED CBOC ANNUAL VISIT Has ADDENDA Today's Nurse check-in note reviewed. Co-managed care with a non-VA provider. HPI: The patient is a 79 year old MALE here accompanied by his daughter for Wellness and preventive medicine visit and to establish care at the [facility]. The patient has no concerns today. Review of Systems: Denies chest pain, shortness of breath, recent significant weight changes, rash, bowel or bladder changes, new joint pain or swelling, headaches, lightheadedness, vision changes, new numbness or tingling or weakness. Remainder of 10 point ROS is negative, except as above. 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6 F [37.0 C] (07/26/2024 14:27) WT: 121.7 lb [55.20 kg] (07/26/2024 14:27) BMI: BMI not available without height Pain: 0 (07/26/2024 14:27) O2 Sat: 97% (07/26/2024 14:27) General: Alert, well dressed and groomed, no apparent distress HEENT: ear canals clear, TMs normal, OP clear, neck supple without mass, adenopathy or thyromegaly Lungs: Clear; no wheezes or crackles CV: RRR without murmur, no lower extremity edema GI: Abdomen non distended, soft, non tender, normal bowel sounds, no mass or HSM Skin: Warm and moist, no rash or erythema in exposed areas MS: ambulates without difficulty Psych: Good eye contact, speech normal rate and rhythm, affect full range Assessment/Plan: #Wellness/screening visit completed. #Anaemia - labs #Chronic kidney disease - labs #Diabetes mellitus type 2 - labs #Mixed hyperlipidaemia - labs #Essential hypertension BP reading noted to be elevated. Pt advised to continue with home BP monitoring. Call/RTC if BP remains consistently elevated #Hx of Leucocytosis - labs #All other chronic conditions are stable understands and agrees to the plan. Follow up as discussed. Sooner if questions or concerns. Toxic Exposure Screening: The /caregiver was asked if they believe the Drift experienced any toxic exposure(s), such as Airborne Hazards and Open Burn Pit, [place] War related exposures, Agent [place], Radiation, contaminated water at [place] or other such exposures, while serving in the [employer]. 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 Printed information was offered and provided if desired. /caregiver has health or medical concerns related to their concern of environmental exposure. Concern: History prostate cancer, DM2 No questions at this time Drift/caregiver was informed of local points of contact. Contact information for local resources: - Veterans Benefits for claims submission: Have the call or have them visit the following web address for online scheduling: [email or web address] - [place] Healthcare Enrollment: -VETS (0566) - Find a Customer Care Agent (VSO): Have the call 4-941-NDGYFHY or look up their VSO at: [email or web address] - [facility] [place] Navigators: Anabell Kimmilton [facility] [phone] The following connections were provided to the /caregiver: [employer] Benefits Administration (VBA) for Benefits/claims: Hepatitis C Testing: Patient has given verbal consent for HCV antibody testing. An HCV lab test has been ordered - see orders tab. /naun/ GANESH RICARDO DNP, APRN, [facility] NURSE PRACTITIONER Signed: 07/26/2024 20:33 07/26/2024 ADDENDUM STATUS: COMPLETED Alerting RN to please inform patient of the recent lab results and follow up recommendations. /brian RICARDO DNP, APRN, [facility] NURSE PRACTITIONER Signed: 07/26/2024 21:58 Receipt Acknowledged By: 08/01/2024 09:22 /naun/ CASTILLO LARRY RN RN, [facility] 07/27/2024 ADDENDUM STATUS: COMPLETED New patient who would like to discuss VA policies and resources with . Please give him a call. /brian RICARDO DNP, APRN, [facility] NURSE PRACTITIONER Signed: 07/27/2024 10:20 Receipt Acknowledged By: 07/28/2024 11:20 /naun/ LATRICE MOORE [place] 08/01/2024 ADDENDUM STATUS: COMPLETED Die Holder contacted to discuss PCP recommendations. Drift verbalized understanding and agreed to plan of care. RTC order placed for f/u labs /naun/ CASTILLO LARRY RN RN, [facility] Signed: 08/01/2024 09:31 GANESH RICARDO [facility]
--- OUTSIDE RECORDS SUMMARY | 2024-09-14 15:51 | XMS_ITS | Encounter Summary ---
Author Name [facility] [place] [facility] [place] Address [address] [place] [address] Care Team Providers Care Insulation Blanket Maker Name Role Phone GANESH RICARDO Primary [...] PART A Jun 20, 2010 PART A [id number] [phone] Adriana OSBORN PATIENT MEDICARE (WNR) MEDICARE (M) PART B Jun 20, 2010 PART B [id number] [phone] Adriana OSBORN PATIENT Selected Encounter This section includes the information on record at [place] for the Encounter. Date/Time Encounter Type Encounter Description Reason Pro vider Source Jul 26, 2024 02:00 PM Outpatient Encounter TELEPHONE PRIMARY CARE IHE Encounter Template Text not used by [place] [...] 05:32 PM AMBULATORY - NONE [place] [facility] Sep 08, 2024 10:00 AM AMBULATORY [...] Aug 01, 2024 09:28 AM Reporting Lab: [facility] [id number] Performing Lab: [facility] [phone] B 12 318 pg/mL [phone] Aug 08, 2024 02:18 PM MIRNA C [facility] FOLATE Specimen Type: SERUM No comment entered. Ordering Provider: GANESH RICARDO Report Released Date/Time: Aug 01, 2024 09:28 AM Reporting Lab: [facility] [id number] Performing Lab: [facility] [phone] FOLATE 9.7 ng/mL >7.0 Aug 08, 2024 02:18 PM MIRNA C [facility] IRON GROUP Specimen Type: PLASMA No comment entered. Ordering Provider: GANESH RICARDO Report Released Date/Time: Aug 01, 2024 09:28 AM Reporting Lab: [facility] [id number] Performing Lab: [facility] [phone] IRON 47 ug/dL L 65-175 TIBC,CALCULATED 250 ug/dL 250-425 FERRITIN 98.5 ng/mL 21.8-274.7 IRON SATURATION 19 L 20-50 TRANSFERRIN 200 mg/dL [phone] Jul 26, 2024 03:26 PM MIRNA [facility] CBC & DIFF Specimen Type: BLOOD Comment: Automated Differential Performed Ordering Provider: GANESH RICARDO Report Released Date/Time: Jul 26, 2024 02:56 PM Reporting Lab: [facility] [id number] Performing Lab: [facility] [id number] WBC 6.9 4.0-11.0 RBC 4.44 L 4.60-6.20 [...] Jul 26, 2024 02:56 PM Reporting Lab: [facility] [phone] Performing Lab: [facility] [phone] CREATININE 1.0 mg/dL 0.7-1.2 UREA NITROGEN 23 [...] Jul 26, 2024 02:56 PM Reporting Lab: [facility] [phone] Performing Lab: [facility] [phone] HEMOGLOBIN A1C 6.4 H 4.0-6.0 Jul 26, 2024 03:26 PM MIRNA JACKSON LIPID PANEL,NON-FASTING Specimen Type: PLASMA No comment entered. Ordering Provider: GANESH RICARDO Report Released Date/Time: Jul 26, 2024 02:56 PM Reporting Lab: [facility] [phone] Performing Lab: [facility] [address] CHOLESTEROL 215 mg/dL H <199 .HDL 83 mg/dL >40 LDL CALCULATION 117 mg/dL H <99 VLDL CALCULATION 15 mg/dL <29 NON HDL CHOLESTEROL 132 mg/dL H <129 TRIG(NON FASTING) 76 mg/dL <149 Jul 26, 2024 03:26 PM MIRNA JACKSON ANTI-HEP C(EIA) Specimen Type: SERUM No comment entered. Ordering Provider: GANESH RICARDO Report Released Date/Time: Jul 26, 2024 02:56 PM Reporting Lab: [facility] [phone] Performing Lab: [facility] [phone] ANTI-HEP C(EIA) NEGATIVE NEGATIVE Encounter Notes: All associated encounter notes This section contains the clinical notes associated to the Encounter. Date/Time Encounter Note(s) Provider Source Aug 04, 2024 10:45 AM ADDENDUM: LOCAL TITLE: Addendum STANDARD TITLE: ADDENDUM DATE OF NOTE: AUG 04, 2024@10:45:50 ENTRY DATE: AUG 04, 2024@10:45:51 AUTHOR: OLENA BARBOZA COSIGNER: URGENCY: STATUS: COMPLETED Vet returned call stated he is unable to come to the clinic today for 1PM /naun/ OLENA CABRERA [facility] Signed: 08/04/2024 10:47 Receipt Acknowledged By: 08/04/2024 10:48 /naun/ LATRICE [facility] ====== --- Original Document --- 07/28/24 SOCIAL WORK PROGRESS NOTE: Calibration Technician called and spoke with . He is requesting dental care. Calibration Technician acknowledged and shared that he does not meet the [place] eligibility criteria for dental care. Calibration Technician offered to mail him dental resources. requested to meet with magnetic tape typewriter operator in person to discuss these. We agreed to meet on WednesdayAug 04 at 1PM. Calibration Technician will call in the morning as reminder. /naun/ [facility] Signed: 08/01/2024 08:36 08/04/2024 ADDENDUM STATUS: UNSIGNED You may not VIEW this UNSIGNED Addendum. OLENA BARBOZA [facility] Jul 28, 2024 11:21 AM SOCIAL WORK NOTE: LOCAL TITLE: SW SOCIAL WORK PROGRESS NOTE STANDARD TITLE: SOCIAL WORK NOTE DATE OF NOTE: JUL 28, 2024@11:21 ENTRY DATE: JUL 28, 2024@11:21:06 AUTHOR: LATRICE MOORE COSIGNER: URGENCY: STATUS: COMPLETED SOCIAL WORK PROGRESS NOTE Has ADDENDA Calibration Technician called and spoke with . He is requesting dental care. Calibration Technician acknowledged and shared that he does not meet the [place] eligibility criteria for dental care. Calibration Technician offered to mail him dental resources. [place] requested to meet with magnetic tape typewriter operator in person to discuss these. We agreed to meet on WednesdayAug 04 at 1PM. Calibration Technician will call in the morning as reminder. /es/ LATRICE MOORE [place] Signed: 08/01/2024 08:36 08/04/2024 ADDENDUM STATUS: COMPLETED Calibration Technician called to remind of the appointment. Calibration Technician left a voicemail. /naun/ LATRICE MOORE [place] Signed: 08/04/2024 10:50 08/04/2024 ADDENDUM STATUS: COMPLETED Vet returned call stated he is unable to come to the clinic today for 1PM /es/ OLENA CABRERA [facility] Signed: 08/04/2024 10:47 Receipt Acknowledged By: 08/04/2024 10:48 /naun/ LATRICE MOORE [facility] LATRICE MOORE [facility]
[2024-09-18 15:08] LABS: Appearance Urine Slightly Cloudy (Clear); Bilirubin Urine Negative (Negative); Blood Urine 3+ (Negative); Color Urine Pink (Yellow); Glucose Urine Negative (Negative); Ketones Urine Negative (Negative); Leukocyte Esterase Urine 3+ (Negative); Nitrite Urine Negative (Negative); Protein Urine 2+ (Negative); Specific Gravity Urine 1.015 (1.000-1.030); Urobilinogen Urine 0.2 (0.2-1.0)
[2024-09-18 15:58] LABS: WBC Clumps Urine Many
[2024-09-18 15:59] LABS: Amorphous Sediment Urine Many; Bacteria Urine Few
[2024-09-18 16:00] LABS: Squamous Epithelial Cell Urine Moderate (None-Few)
[2024-09-18 16:25] LABS: Albumin* 3.9 g/dL (3.3-5.0)
[2024-09-18 16:26] LABS: Chloride* 103 mmol/L (96-114); Potassium* 4.4 mmol/L (3.6-5.1); Sodium* 135 mmol/L (135-149)
[2024-09-18 16:28] LABS: Anion Gap 3 mEq/L (7-15); Bilirubin Direct* 0.3 mg/dL (0.0-0.5); Bilirubin Total* 0.5 mg/dL (0.1-1.5); Carbon Dioxide* 29 mmol/L (20-32); Creatinine* 1.1 mg/dL (0.5-1.5); Estimated Glomerular Filt Rate 68 ml/min
[2024-09-18 16:29] LABS: Alanine Aminotransferase* 11 U/L (4-50); Alkaline Phosphatase* 160 U/L (40-150); Aspartate Amino Transferase* 21 U/L (12-35); Blood Urea Nitrogen* 18 mg/dL (7-30); Calcium* 10.1 mg/dL (8.4-10.6); Glucose* 114 mg/dL (60-115); Total Protein* 6.9 g/dL (6.0-8.3)
== END 2024-09-18 13:31 | disposition home or self-care (01) ==
LOC: RAD 13:34
PROVIDERS: PCP Chiropractor; Visit Provider Chiropractor
DX: N18.9 Chronic kidney disease, unspecified (principal); I34.0 Nonrheumatic mitral (valve) insufficiency; I07.1 Rheumatic tricuspid insufficiency; I51.9 Heart disease, unspecified
CPT/HCPCS: 36415; 80053; 80076; 81001; 81003; 87086; 93306